=== PATIENT | male | born 1970 | race Caucasian/White ===

== ENCOUNTER 2016-03-25 16:27 | Inpatient (IN) | payer OTHER ==
[2016-03-25] MEDS ORDERED: SODIUM CHLORIDE 0.9% 1,000 ML IV STA ×2 (19:05→20:22)
[2016-03-25] MEDS ORDERED: METOCLOPRAMIDE 5 MG/ML 2 ML VIAL IVP STA (19:05)
--- NOTE | 2016-03-25 19:30 | ED ---
General Adult HPI - General Chief complaint: Nausea/Vomiting/Diarrhea Stated complaint: Vomiting,Dehydration,Trouble Urinating Time Seen by Provider: 03/25/16 19:04 Source: patient, family, RN notes reviewed, old records reviewed Mode of arrival: ambulatory Limitations: no limitations - History of Present Illness Initial comments: Chief complaint history of present illness a 45-year-old male with vomiting for the past 24 hours. Patient is unable to keep any fluids down. No diarrhea. Just generalized aches and pains. No fever. - Related Data Home Medications Medication Instructions Recorded Confirmed HYDROcodone/APAP 10-325MG [[place] 1 tab PO BID PRN 03/25/16 03/25/16 10-325] amLODIPine [Norvasc] 10 mg PO DAILY 03/25/16 03/25/16 traZODone HCL [Desyrel] 100 mg PO HS PRN 03/25/16 03/25/16 Allergies Allergy/AdvReac Type Severity Reaction Status Date / Time No Known Allergies Allergy Verified 03/25/16 19:31 Review of Systems ROS Statement: Those systems with pertinent positive or pertinent negative responses have been documented in the HPI. Review of systems. Patient has mild headache no blurred vision mild sore throat and vomiting reflux GERD type symptoms. No significant abdominal pain. No diarrhea. No skin rashes. No neuro deficits. All systems are reviewed. Past medical problems hypertension for which she takes Norvasc. Surgeries include meniscus repair arthroscopically though his knee. Family history father had prostate cancer. Patient denies ALLERGIES. He does smoke strongly encouraged stop strings alcohol. ROS Other: All systems not noted in ROS Statement are negative. Past Medical History Past Medical History: No Reported History History of Any Multi-Drug Resistant Organisms: None Reported Past Surgical History: Orthopedic Surgery Additional Past Surgical History / Comment(s): knee Past Psychological History: No Psychological Hx Reported Smoking Status: Current every day smoker Past Alcohol Use History: Occasional Past Drug Use History: Marijuana General Exam - General Exam Comments Initial Comments: General: The patient is awake and alert, has been vomiting for 24 hours. No blood noted in the vomit. No diarrhea. Vital signs show temperature 98.1 pulse 84 story rate and pulse ox 95% room air blood pressure 91/45 Eye: Pupils are equal, round and reactive to light, extra-ocular movements are intact ; there is normal conjunctiva bilaterally. No signs of icterus. Ears, nose, mouth and throat: There are moist mucous membranes , slightly dry. No oral lesions. Neck: The neck is supple, there is no tenderness , no anterior cervical lymphadenopathy. Cardiovascular: There is a regular rate and rhythm. No murmur, rub or gallop is appreciated. Respiratory: Lungs are clear to auscultation, respirations are non-labored, breath sounds are equal. No wheezes, stridor, rales, or rhonchi. Gastrointestinal: Soft, non-distended, non-tender abdomen without masses or organomegaly noted. There is no rebound or guarding present. No CVA tenderness. Active bowel sounds There is no tenderness to palpation in the midline. There is no obvious deformity. No rashes noted. Musculoskeletal: Normal ROM, no tenderness, There is no pedal edema. There is no calf tenderness or swelling. Sensation intact. Neurological: No evidence of any neuro deficits, no focal or lateralizing signs appreciated or complained of. Skin: Skin is warm and dry and no rashes or lesions are noted. Limitations: no limitations Course Vital Signs 03/25/16 17:51 Temperature 97.1 F L Pulse Rate 84 Respiratory 18 Rate Blood Pressure 91/45 O2 Sat by Pulse 95 Oximetry Medical Decision Making - Medical Decision Making Medical decision making; the patient's labs show acute renal failure with a BUN of 81 creatinine 7.52, WBC is 17.4 with a hemoglobin of 16.9 hematocrit of 49. The patient's sodium 144 potassium is 4.8 chloride 84. Carbon dioxide 30 with an anion gap of 30. The patient's glucose 139. AST ALT within normal limits total protein is 9.2 albumin is 5.4 amylase elevated 144 lipase elevated at 440. The patient is receiving IV fluids. The case discussed with Dr. lin the on- call production machine operator. He recommends 3 L normal saline and then run at 125/h. He wants a Davis catheter placed he also requests a renal ultrasound and a urinalysis in the morning. Case discussed with Dr. Whiting. Patient be admitted his service. - Lab Data Result diagrams: 03/25/16 19:25 03/25/16 19:25 Lab Results 03/25/16 03/25/16 Range/Units 19:25 19:25 WBC 17.4 H (3.8-10.6) k/uL RBC 5.25 (4.30-5.90) m/uL Hgb 16.9 (13.0-17.5) gm/dL Hct 49.2 (39.0-53.0) % MCV 93.7 (80.0-100.0) fL MCH 32.3 (25.0-35.0) pg MCHC 34.4 (31.0-37.0) g/dL RDW 12.4 (11.5-15.5) % Plt Count 343 (150-450) k/uL Neutrophils % 88 % Lymphocytes % 4 % Monocytes % 7 % Eosinophils % 1 % Basophils % 0 % Neutrophils # 15.2 H (1.3-7.7) k/uL Lymphocytes # 0.7 L (1.0-4.8) k/uL Monocytes # 1.2 H (0-1.0) k/uL Eosinophils # 0.1 (0-0.7) k/uL Basophils # 0.1 (0-0.2) k/uL Sodium 144 (137-145) mmol/L Potassium 4.8 (3.5-5.1) mmol/L Chloride 84 L (98-107) mmol/L Carbon Dioxide 30 (22-30) mmol/L Anion Gap 30 mmol/L BUN 81 H* (9-20) mg/dL Creatinine 7.52 H* (0.66-1.25) mg/dL Est GFR (MDRD) Af Amer 10 (>60 ml/min/1.73 sqM) Est GFR (MDRD) Non-Af 8 (>60 ml/min/1.73 sqM) Glucose 139 H (74-99) mg/dL Calcium 10.7 H (8.4-10.2) mg/dL Total Bilirubin 1.3 (0.2-1.3) mg/dL AST 25 (17-59) U/L ALT 43 (21-72) U/L Alkaline Phosphatase 66 (38-126) U/L Total Protein 9.2 H (6.3-8.2) g/dL Albumin 5.4 H (3.5-5.0) g/dL Amylase 144 H (30-110) U/L Lipase 440 H (23-300) U/L Disposition Clinical Impression: Acute renal failure, Anuria Disposition: ADMITTED IP TO THIS HOSP Condition: Serious
[2016-03-25 19:35] LABS: Basophils # (A) 0.1 k/uL (0-0.2); Basophils % (A) 0 %; CH 33.1; CHCM 35.5; Eosinophils # (A) 0.1 k/uL (0-0.7); Eosinophils % (A) 1 %; HCT 49.2 % (39.0-53.0); HDW 2.39; HGB 16.9 gm/dL (13.0-17.5); Luc # (Auto) 0.15; Luc % (Auto) 1; Lymphocytes # (A) 0.7 k/uL (1.0-4.8); Lymphocytes % (A) 4 %; MCH 32.3 pg (25.0-35.0); MCHC 34.4 g/dL (31.0-37.0); MCV 93.7 fL (80.0-100.0); Mean Platelet Volume 7.5; Monocytes # (A) 1.2 k/uL (0-1.0); Monocytes % (A) 7 %; Neutrophils # (A) 15.2 k/uL (1.3-7.7); Neutrophils % (A) 88 %; RBC 5.25 m/uL (4.30-5.90); RDW 12.4 % (11.5-15.5); WBC 17.4 k/uL (3.8-10.6); WBC (Perox) 18.05
--- NOTE | 2016-03-25 19:47 | XR ---
EXAMINATION TYPE: XR abdomen 2V DATE OF EXAM: 03/25/2016 7:45 PM COMPARISON: NONE HISTORY: Vomiting TECHNIQUE: 3 views FINDINGS: There is no sign of intestinal obstruction or pneumoperitoneum. Fecal pattern is normal. Th ere is no sign of a mass. There are no pathologic calcifications over the kidneys. IMPRESSION: Nonacute abdomen.
[2016-03-25 19:48] LABS: Calcium 10.7 mg/dL (8.4-10.2); Potassium 4.8 mmol/L (3.5-5.1); Total Bilirubin 1.3 mg/dL (0.2-1.3); Total Protein 9.2 g/dL (6.3-8.2)
[2016-03-25] MEDS ORDERED: HYDROmorphone 1 MG/ML 1 ML SYRINGE IVP STA (20:36)
[2016-03-25] MEDS ORDERED: NALOXONE 0.4 MG/ML 1 ML VIAL IV PRN (20:55)
[2016-03-25] MEDS ORDERED: SODIUM CHLORIDE 0.9% 1,000 ML IV ONE (21:07)
--- NOTE | 2016-03-25 21:54 | US ---
EXAMINATION TYPE: US renals and bladder DATE OF EXAM: 03/25/2016 9:22 PM COMPARISON: NONE CLINICAL HISTORY: Unable to urinate, pt had a catheter. EXAM MEASUREMENTS: Right Kidney: 10.5 x 5.1 x 5.5 cm Left Kidney: 11.1 x 4.1 x 4.7 cm TECHNOLOGIST IMPRESSION: Right Kidney: wnl Left Kidney: wnl Bladder: not seen due to catheter Bilateral Jets seen: Not seen There is no evidence for hydronephrosis at this point in time. No nephrolithiasis is seen. No corine s are identified. The urinary bladder is anechoic. Bilateral ureteral jets are seen. IMPRESSION: Normal bilateral renal sonogram. No evidence of renal mass or obstruction. Patient has a catheter. Th e urinary bladder was not evaluated. Normal Values: Renal Length = 9 - 12cm Bladder Wall: < 0.3cm
[2016-03-25] MEDS: SODIUM CHLORIDE 0.9% 1,000 ML IV SCH (23:06)
[2016-03-26] MEDS: ONDANSETRON 4 MG/2 ML VIAL IVP PRN ×4 (00:41→14:46)
[2016-03-26] MEDS: HYDROmorphone 1 MG/ML 1 ML SYRINGE IV PRN ×6 (00:42→21:06)
[2016-03-26 04:43] LABS: Basophils % (A) 0 %; CH 32.3; CHCM 34.5; Eosinophils # (A) 0.1 k/uL (0-0.7); Eosinophils % (A) 0 %; HCT 41.4 % (39.0-53.0); HDW 2.37; HGB 14.3 gm/dL (13.0-17.5); Luc # (Auto) 0.16; Luc % (Auto) 1; Lymphocytes # (A) 0.8 k/uL (1.0-4.8); Lymphocytes % (A) 5 %; MCH 32.6 pg (25.0-35.0); MCHC 34.7 g/dL (31.0-37.0); MCV 94.1 fL (80.0-100.0); Mean Platelet Volume 6.9; Monocytes # (A) 1.2 k/uL (0-1.0); Monocytes % (A) 7 %; Neutrophils # (A) 14.4 k/uL (1.3-7.7); Neutrophils % (A) 87 %; RDW 12.4 % (11.5-15.5); WBC 16.6 k/uL (3.8-10.6); WBC (Perox) 17.02
[2016-03-26 04:53] LABS: Calcium 9.4 mg/dL (8.4-10.2); Magnesium 2.1 mg/dL (1.6-2.3); Potassium 4.3 mmol/L (3.5-5.1); Total Bilirubin 0.8 mg/dL (0.2-1.3); Total Protein 6.6 g/dL (6.3-8.2)
[2016-03-26 05:04] LABS: Phosphorous 11.7 mg/dL (2.5-4.5)
[2016-03-26] MEDS: SODIUM CHLORIDE 0.9% 1,000 ML IV SCH ×3 (06:18→20:58)
[2016-03-26] MEDS: PANTOPRAZOLE 40 MG/10 ML VIAL IV SCH (07:47)
[2016-03-26] MEDS ORDERED: traZODone HCL 100 MG TAB PO PRN (08:40)
[2016-03-26] MEDS: HEPARIN SODIUM,PORCINE 5,000 UNIT/ML 1 ML VIAL SQ SCH ×2 (10:09→20:59)
--- NOTE | 2016-03-26 10:10 | P.HPIM ---
History of Present Illness H&P Date: 03/26/16 Chief Complaint: Vomiting and not making urine This is a 45-year-old male with a known history of smoking and hypertension. Patient presents to the emergency room due to intractable vomiting and not making any urine. Patient reports on Tuesday he had been tearing down drywall and inhaling the dust. The drywall is from 192. And then later in the day he started vomiting. He couldn't keep anything down. There has been over 24 hours without producing any urine. Patient has been having epigastric abdominal pain. Patient has been vomiting mostly bile in color. Now there is some blood noted in it. He reports having a normal bowel movement Tuesday morning. Has had no diarrhea. Denies any fevers chills or sweats. Laboratory results in the emergency room had shown a BUN of 81 and creatinine of 7.52. Renal ultrasound completed was normal. Patient received 3 L of IV fluids is currently has normal saline running at 125 mL an hour. His amylase and lipase were elevated on admission as well. Amylase has gone from 144-555. Lipase 440 increased to 3765. Patient reports no history of pancreatitis. He also reports no excessive alcohol use. He reports checking one beer on Tuesday. However he does not usually have any alcoholic beverages on a daily basis. No history of gallstones. Nephrology has been consulted. There is discussion about patient receiving dialysis. Abdominal x-ray was negative. Abdominal ultrasound has been ordered for further evaluation of his pancreatitis and ruling out gallstones. White count on admission elevated at 17.4. Patient is currently nothing by mouth. Still having episodes of vomiting. Patient denies any chest pain or shortness of breath. Patient also hypotensive on admission.* Blood pressure in the 80s. Blood pressure currently 111/71 Review of Systems Please refer to HPI otherwise unremarkable Past Medical History Past Medical History: Hypertension Additional Past Medical History / Comment(s): chronic back pain L1 - L5 History of Any Multi-Drug Resistant Organisms: None Reported Past Surgical History: Orthopedic Surgery Additional Past Surgical History / Comment(s): knee Past Anesthesia/Blood Transfusion Reactions: No Reported Reaction Past Psychological History: No Psychological Hx Reported Smoking Status: Current every day smoker Past Alcohol Use History: Occasional Past Drug Use History: Marijuana - Past Family History Mother Family Medical History: Cancer Additional Family Medical History / Comment(s): cancer - cervical Father Family Medical History: Renal Disease Additional Family Medical History / Comment(s): Dad had renal failure Medications and Allergies Home Medications Medication Instructions Recorded Confirmed Type HYDROcodone/APAP 10-325MG [[place] 1 tab PO BID PRN 03/25/16 03/25/16 History 10-325] amLODIPine [Norvasc] 10 mg PO DAILY 03/25/16 03/25/16 History traZODone HCL [Desyrel] 100 mg PO HS PRN 03/25/16 03/25/16 History Allergies Allergy/AdvReac Type Severity Reaction Status Date / Time No Known Allergies Allergy Verified 03/25/16 19:31 Physical Exam Vitals: Vital Signs Temp Pulse Pulse Resp BP BP Pulse Ox 03/26/16 04:15 84 18 111/71 88 L 03/26/16 04:00 97.1 F L 71 16 93/51 95 03/26/16 00:00 97.8 F 76 16 107/64 96 03/25/16 23:35 97.0 F L 78 18 82/45 96 03/25/16 23:00 71 18 84/46 95 03/25/16 22:40 96.8 F L 75 18 90/50 97 03/25/16 22:19 153/105 03/25/16 21:04 78 18 77/40 100 Intake and Output 03/25/16 03/26/16 03/26/16 22:59 06:59 14:59 Intake Total 750 Output Total 350 Balance 400 Intake: IV 250 Sodium Chloride 0.9% 1, 250 000 ml @ 125 mls/hr IV . Q8H [facility] Rx#:[id number] Oral 500 Output: Emesis 350 Other: Voiding Method Indwelling Catheter Weight 105.3 kg Head normocephalic Neck supple Lungs clear to auscultation bilaterally no wheezing or crackles Heart regular rate and rhythm S1-S2, no rub or gallop Abdomen is soft, nondistended. Diffuse tenderness. But more significantly in the epigastric and right upper quadrant. Positive bowel sounds Extremities no edema Neuro alert and orientated to 3 Results CBC & Chem 7: 03/26/16 04:22 03/26/16 04:22 Labs: Abnormal Lab Results - Last 24 Hours (Table) 03/26/16 03/26/16 Range/Units 04:22 04:22 WBC 16.6 H (3.8-10.6) k/uL Neutrophils # 14.4 H (1.3-7.7) k/uL Lymphocytes # 0.8 L (1.0-4.8) k/uL Monocytes # 1.2 H (0-1.0) k/uL Chloride 89 L (98-107) mmol/L BUN 80 H* (9-20) mg/dL Creatinine 7.50 H* (0.66-1.25) mg/dL Glucose 121 H (74-99) mg/dL Phosphorus 11.7 H* (2.5-4.5) mg/dL AST 16 L (17-59) U/L Amylase 555 H* (30-110) U/L Lipase 3765 H (23-300) U/L Thrombosis Risk Factor Assmnt - Choose All That Apply Any of the Below Risk Factors Present?: Yes Each Factor Represents 1 point: Obesity (BMI >25) Other Risk Factors: No Thrombosis Risk Factor Assessment Total Risk Factor Score: 1 Thrombosis Risk Factor Assessment Level: Low Risk Assessment and Plan Plan: 1. Acute kidney injury likely secondary to vomiting and hypotension. Nephrology has been consulted. BUN on admission 81 and creatinine 7.52. Patient's has received IV fluid boluses and currently has normal saline running at 125 mL an hour. Renal ultrasound was normal 2. Acute pancreatitis with epigastric abdominal pain. Check abdominal ultrasound to rule out gallstones. Patient denies daily alcohol use. Lipase 3765 and amylase 555. LFTs normal. Keep patient nothing by mouth. Continue with IV fluid hydration. Continue IV Dilaudid as needed for pain control. 3. Intractable vomiting continue Zofran as needed and IV Protonix 4. Hyperphosphatemia secondary to the acute kidney injury. Continue to monitor. Await nephrology recommendations. 5. Hypotension present on admission improved with IV fluids. Hold Norvasc 6. Hyperglycemia present on admission. Blood sugar 139 Patient has no history of diabetes. We'll continue to monitor blood sugars. Place patient on sliding scale with Accu-Checks every before meals and at bedtime 7. Nicotine dependence: Discussed smoking cessation for greater than 3 minutes and less than 10 minutes. Patient refuses smoking patch at this time 8. GI prophylaxis Protonix and DVT prophylaxis subcu heparin Time with Patient: Greater than 30 (Greater than 50% of the total time spent in counseling and coordination of care.I performed an examination of the patient and discussed their management with the physician [employer] Fabrication Supervisor. I have reviewed the Physician [employer] Supervisor's notes and agree with the documented findings and plan of care)
[2016-03-26 11:58] LABS: Glucose,Whole Blood 118 mg/dL (75-99)
[2016-03-26 12:05] LABS: Hemoglobin A1C 5.2 % (4.2-6.1)
[2016-03-26 12:08] LABS: INR 1.1 (<1.1); Prothrombin Time 10.8 sec (9.0-12.0)
--- NOTE | 2016-03-26 12:19 | US ---
EXAMINATION TYPE: US abdomen complete DATE OF EXAM: 03/26/2016 11:07 AM COMPARISON: Renal US in pacs CLINICAL HISTORY: 45-year-old male Abdomen pain and N/V x 4 days. Pancreatitis, rule out gallstones. TECHNIQUE: Multiple sonographic images of the abdomen were obtained. FINDINGS: Liver Length: 16.5cm Gallbladder Wall: 2.8 mm CBD: 0.5cm Spleen: 10.6cm Right Kidney: 10.5 x 5.6 x 6.2cm Left Kidney: 11.2 x 4.9 x 4.8cm Pancreas: Only a portion of the pancreatic neck and body are visualized and show no gross abnormality . Remainder suboptimally seen due to shadowing from bowel gas. Liver: wnl Gallbladder: There is no abnormal gall bladder wall thickening. However, the gallbladder is borderli ne to mildly hydropic measuring 4.2 cm wide. No shadowing calculi. Evidence for sonographic Polanco's sign: yes CBD: Visualized portions within normal limits. Spleen: Within normal limits. Right Kidney: No hydronephrosis. Left Kidney: No hydronephrosis. Upper IVC: visualized portions wnl Abd Aorta: visualized portions wnl IMPRESSION: 1. Findings equivocal for acute cholecystitis. There is positive sonographic Polanco sign with borderl ine to mild gallbladder hydrops. However, there is no abnormal wall thickening or shadowing calculus seen. Clinical correlation recommended. If further imaging evaluation is desired, HIDA scan can be pe rformed. 2. Bile duct normal caliber. Normal Values: Liver Length: < 16cm wnl, 17-18cm upper limits, >18cm enlarged Spleen Length = < 13cm Renal Length = 9 - 12cm GB Wall: < 0.3cm CBD: < 0.6cm or < 1.0cm post cholecystectomy
[2016-03-26] MEDS: INSULIN LISPRO (humaLOG) 300 UNIT/3 ML VIAL SQ SCH ×3 (12:57→20:58)
--- NOTE | 2016-03-26 14:45 | CONS ---
DATE OF CONSULTATION: 03/26/2016 REASON FOR CONSULTATION: Acute pancreatitis and epigastric pain. HISTORY OF PRESENT ILLNESS: The patient is a 45-year-old pleasant white male with past medical history of hypertension who was admitted to the hospital with acute onset of severe epigastric pain that started on Tuesday morning. He was working on [id number] and while at work he did not feel well and as the day went by he started experiencing some epigastric discomfort and had several episodes of nausea and vomiting. He threw up at least 12 times that day and went and saw his family physician yesterday and was advised to go to the emergency room. In the ER, he was noted to have acute renal failure with BUN of 81, creatinine of 7.52. Patient does not have any history of renal disease in the past. He was also noted to have acute elevation of amylase and lipase and hence we are consulted in regards to this issue. The patient states that he is feeling a little bit better today. He still has some epigastric discomfort and still has some nausea but no emesis. He has no prior history of peptic ulcer disease or recent NSAID use. He denies any prior history of pancreatitis. He usually drinks alcohol on a social basis 1 or 2 drinks a week. No new medications that we started recently. In the ER, he did have an ultrasound of the abdomen done that showed normal-appearing gallbladder with no stones. Part of the pancreas was visualized and appeared normal. Kidneys did not show any evidence of hydronephrosis. His past medical history is significant for hypertension and chronic back pain, anxiety, depression. PAST SURGICAL HISTORY: Knee surgery. MEDICATIONS AT HOME: [place], Norvasc, Desyrel. ALLERGIES: None. SOCIAL HISTORY: No smoking. Socially drinks alcohol. FAMILY HISTORY: Father had renal failure. Mother had cervical cancer. REVIEW OF SYSTEMS: CARDIOPULMONARY: No chest pain or shortness of breath. GENITOURINARY: No dysuria or hematuria. MUSCULOSKELETAL: Unremarkable. SKIN: Unremarkable. ENDOCRINE: Unremarkable. PSYCHIATRIC: Unremarkable. NEUROLOGY: Unremarkable. ENT/VISION: Unremarkable. CONSTITUTIONAL: Overall complains of fatigue and tiredness. On physical examination, he appears comfortable in no apparent distress. Vitals as are stable. Blood pressure is 107/64, pulse is 76, temperature 97.8. HEENT examination unremarkable. Conjunctivae pink. Sclerae anicteric. Oral cavity, no lesions. NECK: No JVD or lymph node enlargement. Chest was clear to auscultation. HEART: Regular rate and rhythm. Abdomen was soft. Bowel sounds are positive. No organomegaly. EXTREMITIES: No pedal edema. SKIN: No rashes. NEURO: Alert and oriented x3. No focal deficits. Labs done at the time of admission to hospital: BUN is 81, creatinine 7.52, today BUN is 80 and creatinine 7.50. Amylase was 555 and lipase is 3765. ALT, AST and T-bili and alkaline phosphatase are within normal limits. WBC is 16.6, hemoglobin 14.3, platelets are normal. IMPRESSION: 1. Acute pancreatitis, patient presents with epigastric pain associated with nausea, vomiting of 2 days' duration and noted to have acute elevation of amylase and lipase consistent with acute pancreatitis. He does not have a history of alcohol use other than social drinking. Ultrasound did not show any evidence of gallstones. Etiology of pancreatitis at this time remains unclear and will be further investigated. 2. Acute renal failure for which nephrology has been consulted. Apparently the patient is going for dialysis catheter placement today. RECOMMENDATIONS: 1. Will start him on a clear liquid diet. 2. Repeat amylase and lipase tomorrow. 3. Obtain fasting serum triglycerides. 4. IV Protonix. 5. Will follow the patient closely during his hospital stay. Thank you for this consultation.
--- NOTE | 2016-03-26 15:31 | CONS ---
DATE OF CONSULTATION: REASON FOR CONSULTATION: Renal failure. HISTORY OF PRESENT ILLNESS: Patient is a 45-year-old white male who was admitted to the hospital from the ER with complaints of nausea and vomiting which started about one day prior to admission. 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 He denied any chest pains or shortness of breath. He is having abdominal pain related to the vomiting. The amylase and lipase levels were noted to be significantly increased after admission. Patient was also found to have a creatinine of 7.52 mg/dL. He has no prior history of kidney diseases. He stated that he had not been making much urine for more than a day prior to admission. He denied any significant diarrhea and he had very poor oral intake over the last day or so. There is no history of use of NSAIDs prior to admission. Patient was maintained on IV fluids. The serum creatinine did not improved from yesterday and has been at about 7.5. PAST MEDICAL HISTORY: Significant for hypertension. PAST SURGICAL HISTORY: Knee surgery. SOCIAL HISTORY: Positive for smoking and marijuana use. No history of other drug abuse or alcohol abuse. Medications at home included: 1. Norvasc. 2. Desyrel. 3. [place]. ALLERGIES: None. REVIEW OF SYSTEMS: As per HPI. Other systems negative. On examination, the patient is comfortable, awake, alert, oriented x3, not in any acute distress. He is nauseated and throwing up dark colored emesis. HEENT: Atraumatic, normocephalic. Pupils are equal, round. JVP is not elevated. Lymph nodes are not palpable. Thyroid is not enlarged. Examination of the heart S1 and S2. Examination of the lungs: Bilateral breath sounds are heard. Decreased breath sounds in bases. ABDOMEN: Soft with tenderness noted in the midabdomen. Examination of lower extremities shows no evidence of edema. DIRECTOR PHARMACOLOGY exam shows patient is able to move all 4 extremities. Labs show sodium 138, potassium 4.3, BUN 80, serum creatinine 7.5. Hemoglobin at 14.3 g/dL, phosphorus is 11.7, calcium 10.7. Amylase was at 555 from 144, lipase went up to 765 from 440. Ultrasound of the kidneys showed no evidence of hydronephrosis or kidney stones and the abdomen ultrasound shows possible acute cholecystitis, bile duct caliber was normal ASSESSMENT: 1. Acute kidney injury, most likely acute tubular necrosis, currently oliguric with significantly compromised in renal function underlying uremia as well. 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 Therefore, his Perm-A-Cath placement is scheduled for review nurse tomorrow. In the meantime patient will be maintained on IV fluids. Currently he is not on any nephrotoxic medications. I have discussed with the patient and family that hopefully this is all acute and his renal function may improve but since there is no urine output, it may take a while if the renal function does recover. At this time, there is no evidence of obstructive uropathy. I will also order creatinine kinase level to rule out any underlying rhabdomyolysis. 2. Vomiting can also be from the pancreatitis as his enzymes have significantly increased from yesterday. 3. Mild hypercalcemia secondary to intravascular volume depletion, currently improved from yesterday. 4. Severe hyperphosphatemia associated with advanced renal failure. 5. Pancreatitis with the ultrasound of the abdomen showing suggestions acute cholecystitis. White count is mildly elevated. The patient is n.p.o. and maintained on IV fluids. Gastroenterology has been consulted. The patient has been evaluated by Dr. Contreras. 6. Rule out rhabdomyolysis, check CK levels PLAN: Continue IV fluids with aggressive IV hydration. Check CPK level and hemodialysis in a.m. once the Perm-A-Cath is inserted. Continue to avoid nephrotoxic agents. Thank you for this consultation. Will continue to follow the patient with you during his hospitalization.
[2016-03-26 17:34] LABS: Glucose,Whole Blood 105 mg/dL (75-99)
[2016-03-26] MEDS: HYDROcodone/APAP 10-325MG 1 EACH TAB PO PRN (18:51)
[2016-03-26 20:45] LABS: Glucose,Whole Blood 121 mg/dL (75-99)
[2016-03-27] MEDS: HYDROmorphone 1 MG/ML 1 ML SYRINGE IV PRN ×4 (04:04→20:15)
[2016-03-27] MEDS: SODIUM CHLORIDE 0.9% 1,000 ML IV SCH ×3 (05:09→20:09)
[2016-03-27 06:36] LABS: Glucose,Whole Blood 96 mg/dL (75-99)
[2016-03-27] MEDS: INSULIN LISPRO (humaLOG) 300 UNIT/3 ML VIAL SQ SCH ×4 (06:38→21:15)
[2016-03-27 07:01] LABS: Basophils % (A) 0 %; CH 32.2; CHCM 33.9; Eosinophils % (A) 0 %; HCT 36.8 % (39.0-53.0); HDW 2.44; HGB 12.2 gm/dL (13.0-17.5); Luc # (Auto) 0.21; Luc % (Auto) 2; Lymphocytes # (A) 0.4 k/uL (1.0-4.8); Lymphocytes % (A) 3 %; MCH 31.6 pg (25.0-35.0); MCV 95.6 fL (80.0-100.0); Mean Platelet Volume 7.4; Monocytes # (A) 0.9 k/uL (0-1.0); Monocytes % (A) 7 %; Neutrophils % (A) 88 %; RBC 3.85 m/uL (4.30-5.90); RDW 12.5 % (11.5-15.5); WBC 13.6 k/uL (3.8-10.6)
[2016-03-27 07:19] LABS: Calcium 7.7 mg/dL (8.4-10.2); Magnesium 1.8 mg/dL (1.6-2.3); Potassium 4.8 mmol/L (3.5-5.1); Total Bilirubin 0.8 mg/dL (0.2-1.3); Total Protein 5.6 g/dL (6.3-8.2)
[2016-03-27 07:27] LABS: Amorphous Sediment,Urine Rare /hpf; Appearance,Urine Turbid (Clear); Bacteria,Urine Moderate /hpf; Bilirubin,Urine Negative (Negative); Glucose,Urine (UA) 2+ (Negative); Ketones,Urine Negative (Negative); Leukocyte Esterase,Urine Large (Negative); Mucus,Urine Rare /hpf; Nitrite,Urine Negative (Negative); PH, Urine 5.5 (5.0-8.0); Particle Count 52934; Protein,Urine 2+ (Negative); RBC,Urine 168 /hpf (0-5); Specific Gravity,Urine 1.016 (1.001-1.035); Squamous Epithelial Cell,Urine 1 /hpf (0-4); UA Billing (MACRO vs. MICRO) MICRO; Urobilinogen,Urine <2.0 mg/dL (<2.0); WBC,Urine >182 /hpf (0-5)
[2016-03-27 07:34] LABS: Phosphorous 10.8 mg/dL (2.5-4.5)
[2016-03-27] MEDS: PANTOPRAZOLE 40 MG/10 ML VIAL IV SCH (07:36)
[2016-03-27] MEDS ORDERED: LIDOCAINE 2% INJ 20 MG/ML SQ ONE (08:17)
[2016-03-27] MEDS ORDERED: fentaNYL (PF) 50 MCG/ML 2 ML AMP IV ONE (08:19)
[2016-03-27] MEDS ORDERED: IV FLUID CONTINUATION 1,000 ML IV ONE (08:25)
[2016-03-27] MEDS ORDERED: MIDAZOLAM 2 MG/2 ML VIAL IV ONE (08:28)
[2016-03-27] MEDS: HYDROcodone/APAP 10-325MG 1 EACH TAB PO PRN (09:02)
[2016-03-27] MEDS: HEPARIN SODIUM,PORCINE 5,000 UNIT/ML 1 ML VIAL SQ SCH ×2 (09:05→20:14)
--- NOTE | 2016-03-27 09:25 | XR ---
EXAMINATION TYPE: XR chest 1V portable DATE OF EXAM: 03/27/2016 9:18 AM COMPARISON: NONE HISTORY: Catheter insertion TECHNIQUE: Single frontal view of the chest is obtained. FINDINGS: There is a right-sided dialysis catheter the tip overlying the right atrium and no pneumot horax. Subsegmental changes at both lung bases with cardiomegaly. Mild central venous congestion susp ected. IMPRESSION: 1. Catheter. The tip overlying the right atrium sizable pneumothorax. 2. Bilateral lower lobe subsegmental atelectasis or infiltrate correlate for mild venous congestion.
[2016-03-27 11:36] LABS: Glucose,Whole Blood 95 mg/dL (75-99)
--- NOTE | 2016-03-27 13:18 | P.PN ---
Subjective Principal diagnosis: Acute renal failure, acute pancreatitis Patient feeling better, no nausea or vomiting mild abdominal pain no fever or chills making some urine Dialysus catheter placed yesterday, Having hemodialysis at this time Objective - Vital Signs Vital signs: Vital Signs Temp 97.8 F 03/27/16 08:00 Pulse 97 03/27/16 04:00 Resp 18 03/27/16 08:00 BP 108/62 03/27/16 08:00 Pulse Ox 90 L 03/27/16 08:00 Intake & Output 03/26/16 03/27/16 03/27/16 18:59 06:59 18:59 Intake Total 1500 1000 50 Output Total 300 300 Balance 1200 700 50 Weight 105.3 kg 107.4 kg Intake: IV 1000 50 Sodium Chloride 0.9% 1, 1000 000 ml @ 125 mls/hr IV . Q8H [facility] Rx#:[id number] Intake, IV Titration 1000 Amount Sodium Chloride 0.9% 1, 1000 000 ml @ 125 mls/hr IV . Q8H [facility] ALEJANDR[facility] Rx#:[id number] Oral 500 0 Output: Urine 300 Emesis 300 Other: Voiding Method Indwelling Catheter Indwelling Catheter Indwelling Catheter - Exam In general patient is alert and oriented answering questions appropriately HEENT head normocephalic and atraumatic Neck is supple no JVD no goiter no lymphadenopathy Chest is clear to auscultation no crackles no wheezing Cardiac exam reveals regular heart sounds no gallops no murmurs Abdomen is soft nontender no organomegaly Extremity exam reveals no edema no cyanosis or clubbing - Labs CBC & Chem 7: 03/27/16 06:21 03/27/16 06:21 Labs: Abnormal Lab Results - Last 24 Hours (Table) 03/26/16 03/26/16 03/27/16 Range/Units 17:16 20:43 06:05 WBC (3.8-10.6) k/uL RBC (4.30-5.90) m/uL Hgb (13.0-17.5) gm/dL Hct (39.0-53.0) % Plt Count (150-450) k/uL Neutrophils # (1.3-7.7) k/uL Lymphocytes # (1.0-4.8) k/uL Sodium (137-145) mmol/L Chloride (98-107) mmol/L BUN (9-20) mg/dL Creatinine (0.66-1.25) mg/dL Glucose (74-99) mg/dL POC Glucose (mg/dL) 105 H 121 H (75-99) mg/dL Calcium (8.4-10.2) mg/dL Phosphorus (2.5-4.5) mg/dL AST (17-59) U/L Total Protein (6.3-8.2) g/dL Albumin (3.5-5.0) g/dL Amylase (30-110) U/L Lipase (23-300) U/L Urine Protein 2+ H (Negative) Urine Glucose (UA) 2+ H (Negative) Urine Blood Large H (Negative) Ur Leukocyte Esterase Large H (Negative) Urine RBC 168 H (0-5) /hpf Urine WBC >182 H (0-5) /hpf Amorphous Sediment Rare H (None) /hpf Urine Bacteria Moderate H (None) /hpf Urine Mucus Rare H (None) /hpf 03/27/16 03/27/16 Range/Units 06:21 06:21 WBC 13.6 H (3.8-10.6) k/uL RBC 3.85 L (4.30-5.90) m/uL Hgb 12.2 L (13.0-17.5) gm/dL Hct 36.8 L (39.0-53.0) % Plt Count 140 L (150-450) k/uL Neutrophils # 12.0 H (1.3-7.7) k/uL Lymphocytes # 0.4 L (1.0-4.8) k/uL Sodium 134 L (137-145) mmol/L Chloride 93 L (98-107) mmol/L BUN 96 H* (9-20) mg/dL Creatinine 9.10 H* (0.66-1.25) mg/dL Glucose 107 H (74-99) mg/dL POC Glucose (mg/dL) (75-99) mg/dL Calcium 7.7 L (8.4-10.2) mg/dL Phosphorus 10.8 H* (2.5-4.5) mg/dL AST 16 L (17-59) U/L Total Protein 5.6 L (6.3-8.2) g/dL Albumin 3.4 L (3.5-5.0) g/dL Amylase 722 H* (30-110) U/L Lipase 2558 H (23-300) U/L Urine Protein (Negative) Urine Glucose (UA) (Negative) Urine Blood (Negative) Ur Leukocyte Esterase (Negative) Urine RBC (0-5) /hpf Urine WBC (0-5) /hpf Amorphous Sediment (None) /hpf Urine Bacteria (None) /hpf Urine Mucus (None) /hpf Assessment and Plan Plan: #1 acute pancreatitis #2 dehydration was acute renal failure requiring hemodialysis most likely due to prerenal azotemia and acute tubular necrosis #3 intractable vomiting resolved #4 hypotension improved continue to hold blood pressure medications
[2016-03-27] MEDS ORDERED: HEPARIN SODIUM,PORCINE 5,000 UNIT/ML 1 ML VIAL ONE (14:20)
--- NOTE | 2016-03-27 16:23 | CONS ---
DATE OF CONSULTATION: This is a 45-year-old gentleman who has been admitted with history of intractable vomiting and the patient has history of smoking, hypertension. I was consulted for placement of dialysis catheter. Patient is not making urine. PAST MEDICAL HISTORY: History of hypertension, history of chronic back problem. SURGICAL HISTORY: Patient had orthopedic surgery done in the past. He has been taking hydrocodone 325 mg one tablet p.o. b.i.d. p.r.n. for the pain. On examination, neck is supple. Trachea central. Chest is clear to auscultation. First and second heart sounds are normal. Abdomen, the patient has abdominal pain. No peritoneal sign noted. Brachial, radial and femoral pulses are present. Lab finding are white cell count 16,000, creatinine 7.50, BUN 80, amylase 555 and lipase is 3765. IMPRESSION: 1. Acute kidney injury. 2. Acute pancreatitis. Plan is placement of dialysis catheter. Risks and complications discussed.
[2016-03-27 16:42] LABS: Glucose,Whole Blood 97 mg/dL (75-99)
--- NOTE | 2016-03-27 18:56 | PCN ---
PREOPERATIVE DIAGNOSIS: Acute on chronic renal failure. PROCEDURE: Ultrasound-guided 28 cm dialysis catheter placed via right internal jugular vein. This patient was brought to the slabber. Right side of the chest and neck was prepped and drapes applied in the usual sterile manner. 1% lidocaine was infiltrated into neck and chest area. After that, ultrasound-guided micropuncture into the right internal jugular vein. Micropuncture guidewire was passed. A 4 Maltese dilator advanced on top the guidewire. Then we passed a regular guidewire under fluoroscopy control and tip of the catheter was at inferior vena cava. An incision was made into the chest wall and 28 cm dialysis catheter brought to the chest wall and dilator was advanced on top the guidewire and sheath was withdrawn on top the guidewire. Through the sheath, we introduced the 28 cm dialysis catheter. Tip of the catheter was in superior vena cava and atrium. Flushed with heparin saline and hep-locked. Sterile dressing applied. The patient tolerated the procedure well.
[2016-03-27 20:53] LABS: Glucose,Whole Blood 104 mg/dL (75-99)
[2016-03-28] MEDS: HYDROmorphone 1 MG/ML 1 ML SYRINGE IV PRN ×5 (01:32→23:57)
[2016-03-28] MEDS: SODIUM CHLORIDE 0.9% 1,000 ML IV SCH ×3 (04:27→20:46)
[2016-03-28 06:07] LABS: Glucose,Whole Blood 100 mg/dL (75-99)
[2016-03-28] MEDS: INSULIN LISPRO (humaLOG) 300 UNIT/3 ML VIAL SQ SCH ×4 (06:30→21:29)
[2016-03-28 07:57] LABS: Calcium 7.5 mg/dL (8.4-10.2); Magnesium 1.8 mg/dL (1.6-2.3); Phosphorous 6.3 mg/dL (2.5-4.5); Potassium 4.3 mmol/L (3.5-5.1); Total Bilirubin 0.6 mg/dL (0.2-1.3); Total Protein 5.2 g/dL (6.3-8.2)
[2016-03-28] MEDS: HEPARIN SODIUM,PORCINE 5,000 UNIT/ML 1 ML VIAL SQ SCH ×2 (08:01→20:47)
[2016-03-28] MEDS: PANTOPRAZOLE 40 MG/10 ML VIAL IV SCH (08:01)
[2016-03-28 08:27] LABS: Basophils # (A) 0.1 k/uL (0-0.2); Basophils % (A) 0 %; CH 33.1; CHCM 33.6; Eosinophils # (A) 0.1 k/uL (0-0.7); Eosinophils % (A) 0 %; HCT 36.1 % (39.0-53.0); HDW 2.46; HGB 11.5 gm/dL (13.0-17.5); Luc # (Auto) 0.21; Luc % (Auto) 2; Lymphocytes # (A) 0.6 k/uL (1.0-4.8); Lymphocytes % (A) 4 %; MCH 31.4 pg (25.0-35.0); MCHC 31.8 g/dL (31.0-37.0); Mean Platelet Volume 8.7; Monocytes # (A) 1.2 k/uL (0-1.0); Monocytes % (A) 8 %; Neutrophils # (A) 11.7 k/uL (1.3-7.7); Neutrophils % (A) 85 %; RBC 3.65 m/uL (4.30-5.90); RDW 12.7 % (11.5-15.5); WBC 13.7 k/uL (3.8-10.6); WBC (Perox) 15.03
--- NOTE | 2016-03-28 11:28 | PN ---
DATE OF SERVICE: 03/27/2016 HISTORY OF PRESENT ILLNESS: Patient is seen for follow-up for acute kidney injury. He has just returned from Perm-A-Cath placement. He is currently comfortable. He is not in any acute distress. He is scheduled for hemodialysis today. On examination, blood pressure is 112/68, heart rate 90 per minute. He is afebrile. Examination of the heart S1 and S2. Examination of the lungs: Bilateral breath sounds are heard. Abdomen is soft, nontender. Examination of lower extremities shows no significant edema. 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 No asterixis are noted. Labs revealed serum creatinine 9.1 mg/dL, potassium is at 4.8 mEq/L. ASSESSMENT: 1. Acute kidney injury, most likely acute tubular necrosis, currently oliguric, status post Perm-A-Cath placement. Patient will have his first hemodialysis treatment today and we will dialyze him again tomorrow on Tuesday. He continues to have poor urine output. Hopefully, his urine output will improve over the next few days. 2. Pancreatitis with serum amylase and lipase currently decreasing. Patient has been evaluated by Gastroenterology. 3. Intervascular volume depletion. Continue with aggressive IV hydration. PLAN: Hemodialysis today and we will repeat hemodialysis again tomorrow on 03/28/16. Continue to avoid nephrotoxic agents and wait for urine output to increase and hopefully there will be some recovery of [place] kidney function.
[2016-03-28 12:08] LABS: Glucose,Whole Blood 93 mg/dL (75-99)
--- NOTE | 2016-03-28 12:23 | P.PN ---
Subjective Principal diagnosis: Acute renal failure, acute pancreatitis Patient feeling better, no nausea or vomiting mild abdominal pain no fever or chills making some urine Dialysis catheter placed Tuesday, Had hemodialysis yesterday Objective - Vital Signs Vital signs: Vital Signs Temp 97.3 F L 03/28/16 12:06 Pulse 85 03/28/16 12:06 Resp 18 03/28/16 12:06 BP 131/78 03/28/16 12:06 Pulse Ox 99 03/28/16 12:06 Intake & Output 03/27/16 03/28/16 03/28/16 18:59 06:59 18:59 Intake Total 1050 1000 120 Balance 1050 1000 120 Weight 113 kg Intake: IV 1050 1000 Sodium Chloride 0.9% 1, 1000 1000 000 ml @ 125 mls/hr IV . Q8H [facility] Rx#:[id number] Oral 120 Other: Voiding Method Indwelling Catheter Indwelling Catheter Indwelling Catheter # Voids 0 0 - Exam In general patient is alert and oriented answering questions appropriately HEENT head normocephalic and atraumatic Neck is supple no JVD no goiter no lymphadenopathy Chest is clear to auscultation no crackles no wheezing Cardiac exam reveals regular heart sounds no gallops no murmurs Abdomen is soft nontender no organomegaly Extremity exam reveals no edema no cyanosis or clubbing - Labs CBC & Chem 7: 03/28/16 06:56 03/28/16 06:56 Labs: Abnormal Lab Results - Last 24 Hours (Table) 03/27/16 03/28/16 03/28/16 Range/Units 20:32 05:53 06:56 WBC 13.7 H (3.8-10.6) k/uL RBC 3.65 L (4.30-5.90) m/uL Hgb 11.5 L (13.0-17.5) gm/dL Hct 36.1 L (39.0-53.0) % Plt Count 137 L (150-450) k/uL Neutrophils # 11.7 H (1.3-7.7) k/uL Lymphocytes # 0.6 L (1.0-4.8) k/uL Monocytes # 1.2 H (0-1.0) k/uL BUN (9-20) mg/dL Creatinine (0.66-1.25) mg/dL POC Glucose (mg/dL) 104 H 100 H (75-99) mg/dL Calcium (8.4-10.2) mg/dL Phosphorus (2.5-4.5) mg/dL AST (17-59) U/L Total Protein (6.3-8.2) g/dL Albumin (3.5-5.0) g/dL Lipase (23-300) U/L 03/28/16 Range/Units 06:56 WBC (3.8-10.6) k/uL RBC (4.30-5.90) m/uL Hgb (13.0-17.5) gm/dL Hct (39.0-53.0) % Plt Count (150-450) k/uL Neutrophils # (1.3-7.7) k/uL Lymphocytes # (1.0-4.8) k/uL Monocytes # (0-1.0) k/uL BUN 70 H (9-20) mg/dL Creatinine 6.60 H* (0.66-1.25) mg/dL POC Glucose (mg/dL) (75-99) mg/dL Calcium 7.5 L (8.4-10.2) mg/dL Phosphorus 6.3 H (2.5-4.5) mg/dL AST 13 L (17-59) U/L Total Protein 5.2 L (6.3-8.2) g/dL Albumin 2.9 L (3.5-5.0) g/dL Lipase 435 H (23-300) U/L Microbiology - Last 24 Hours (Table) 03/27/16 06:05 Urine Culture - Preliminary Urine,Catheterized Assessment and Plan Plan: #1 acute pancreatitis #2 dehydration was acute renal failure requiring hemodialysis most likely due to prerenal azotemia and acute tubular necrosis #3 intractable vomiting resolved #4 hypotension improved continue to hold blood pressure medications #5 possible UTI awaiting urine culture Will cover with Rocephin 1 g IV every 24 hours
[2016-03-28] MEDS: HYDROcodone/APAP 10-325MG 1 EACH TAB PO PRN (12:35)
--- NOTE | 2016-03-28 14:03 | PN ---
Patient is seen for follow-up for acute renal failure. This appears to be ( ) acute. Patient was initially oliguric. His urine output has picked up to about 300 mL last shift. He was dialyzed yesterday. He is currently feeling much better. No further episodes of vomiting. Patient is scheduled for dialysis again today. On examination blood pressure is 131/78, heart rate 85 per minute. He is afebrile. Examination of the heart S1 and S2. Examination of the lungs: Bilateral breath sounds are heard. ABDOMEN: Soft, nontender. Examination of lower extremities shows no significant edema. Labs reveal serum creatinine 6.6, sodium 138, potassium 4.3. Hemoglobin 11.5 g/dL, phosphorus is 6.3. ASSESSMENT: 1. Acute kidney injury, most likely acute tubular necrosis, initially oliguric currently nonoliguric with improving renal ( ) with improving urine output. Patient will be dialyzed again today and we will re-evaluate tomorrow for need for dialysis depending upon his labs and renal function. Depending on his labs and urine output. 2. Pancreatitis, currently significantly improved. 3. Hyperphosphatemia associated with acute kidney injury, maintained on phosphate binders, currently improving. Patient will be maintained on phosphate binders. He had not been eating therefore, PhosLo was not started. 4. Hypovolemia maintained on aggressive IV hydration. PLAN: Continue IV fluids. Hemodialysis today. Repeat phosphorus in the next 2 to 3 days and if renal function continues to improve, we may be able to stop the phosphate binders. I will start low-dose PhosLo for now.
[2016-03-28] MEDS: ONDANSETRON 4 MG/2 ML VIAL IVP PRN ×2 (17:08→23:57)
[2016-03-28] MEDS: CALCIUM ACETATE 667 MG CAP PO SCH (17:09)
[2016-03-28 17:20] LABS: Glucose,Whole Blood 98 mg/dL (75-99)
[2016-03-28 22:16] LABS: Glucose,Whole Blood 103 mg/dL (75-99)
[2016-03-29] MEDS: ONDANSETRON 4 MG/2 ML VIAL IVP PRN ×3 (03:58→20:34)
[2016-03-29] MEDS: HYDROmorphone 1 MG/ML 1 ML SYRINGE IV PRN ×7 (03:58→23:54)
[2016-03-29] MEDS: SODIUM CHLORIDE 0.9% 1,000 ML IV SCH ×3 (03:59→20:35)
[2016-03-29 07:39] LABS: Glucose,Whole Blood 87 mg/dL (75-99)
[2016-03-29] MEDS: INSULIN LISPRO (humaLOG) 300 UNIT/3 ML VIAL SQ SCH (07:49)
[2016-03-29] MEDS: HEPARIN SODIUM,PORCINE 5,000 UNIT/ML 1 ML VIAL SQ SCH ×2 (07:50→20:35)
[2016-03-29] MEDS: PANTOPRAZOLE 40 MG/10 ML VIAL IV SCH (07:50)
[2016-03-29] MEDS: CALCIUM ACETATE 667 MG CAP PO SCH ×2 (07:50→17:24)
[2016-03-29 08:36] LABS: Basophils % (A) 0 %; CH 32.1; CHCM 33.3; Eosinophils # (A) 0.1 k/uL (0-0.7); Eosinophils % (A) 1 %; HCT 34.9 % (39.0-53.0); HDW 2.46; HGB 11.5 gm/dL (13.0-17.5); Luc % (Auto) 3; Lymphocytes # (A) 0.6 k/uL (1.0-4.8); Lymphocytes % (A) 4 %; MCH 31.9 pg (25.0-35.0); MCHC 32.9 g/dL (31.0-37.0); MCV 96.8 fL (80.0-100.0); Mean Platelet Volume 7.8; Monocytes # (A) 1.2 k/uL (0-1.0); Monocytes % (A) 8 %; Neutrophils % (A) 85 %; RBC 3.61 m/uL (4.30-5.90); RDW 12.5 % (11.5-15.5); WBC 15.3 k/uL (3.8-10.6); WBC (Perox) 15.74
[2016-03-29 08:53] LABS: Calcium 7.9 mg/dL (8.4-10.2); Magnesium 1.8 mg/dL (1.6-2.3); Phosphorous 4.5 mg/dL (2.5-4.5); Potassium 3.8 mmol/L (3.5-5.1); Total Bilirubin 0.5 mg/dL (0.2-1.3); Total Protein 5.5 g/dL (6.3-8.2)
--- NOTE | 2016-03-29 08:53 | IR ---
EXAMINATION TYPE: IR cvc insert central tunneled DATE OF EXAM: 03/27/2016 8:42 AM COMPARISON: NONE HISTORY: Renal failure Fluoroscopy support supplied to the referring clinician. See dictated report from vascular surgery, 0.5 minutes fluoroscopy time, 111 intraoperative C-arm images document the procedure
[2016-03-29 10:37] LABS: Amylase 98 U/L (30-110)
--- NOTE | 2016-03-29 11:56 | P.PN ---
Subjective Acute renal failure and acute pancreatitis Patient has been having vomiting since yesterday. Vomiting happens just prior to when his pain medications are due. He did receive hemodialysis yesterday. Still complaining of abdominal pain. Case discussed with GI service. Patient will require further workup for his pancreatitis in the outpatient setting. Patient denies any chest pain, shortness of breath. He did have a bowel movement yesterday that was formed. He is making urine. Objective - Vital Signs Vital signs: Vital Signs Temp 99.8 F H 03/29/16 07:00 Pulse 88 03/29/16 07:00 Resp 16 03/29/16 07:00 BP 136/76 03/29/16 07:00 Pulse Ox 91 L 03/29/16 07:00 Intake & Output 03/28/16 03/29/16 03/29/16 18:59 06:59 18:59 Intake Total 120 Output Total 10 980 Balance 110 -980 Weight 104 kg Intake: Oral 120 Output: Urine 900 Emesis 10 80 Other: Voiding Method Indwelling Catheter Indwelling Catheter Indwelling Catheter # Voids 0 1 - Exam Head normocephalic Neck supple Lungs clear to auscultation bilaterally no wheezing or crackles Heart regular rate and rhythm S1-S2, no rub or gallop Abdomen is soft nondistended epigastric tenderness Extremities no edema Neuro alert and orientated to 3 - Labs CBC & Chem 7: 03/29/16 08:15 03/29/16 08:15 Labs: Abnormal Lab Results - Last 24 Hours (Table) 03/28/16 03/29/16 03/29/16 Range/Units 21:24 08:15 08:15 WBC 15.3 H (3.8-10.6) k/uL RBC 3.61 L (4.30-5.90) m/uL Hgb 11.5 L (13.0-17.5) gm/dL Hct 34.9 L (39.0-53.0) % Neutrophils # 13.0 H (1.3-7.7) k/uL Lymphocytes # 0.6 L (1.0-4.8) k/uL Monocytes # 1.2 H (0-1.0) k/uL BUN 56 H (9-20) mg/dL Creatinine 4.80 H (0.66-1.25) mg/dL POC Glucose (mg/dL) 103 H (75-99) mg/dL Calcium 7.9 L (8.4-10.2) mg/dL AST 16 L (17-59) U/L Total Protein 5.5 L (6.3-8.2) g/dL Albumin 3.1 L (3.5-5.0) g/dL Microbiology - Last 24 Hours (Table) 03/27/16 06:05 Urine Culture - Final Urine,Catheterized Assessment and Plan Plan: 1. Acute kidney injury likely acute tubular necrosis secondary to patient's dehydration from his vomiting and hypotension. Patient has been started on hemodialysis during this admission. He did have hemodialysis yesterday. Creatinine today is 4.8. Renal ultrasound normal. Nephrology following closely 2. Acute pancreatitis with epigastric abdominal pain. Exact etiology unclear. Case discussed with Dr. Contreras. She is recommending further workup outpatient when patient's kidney function has shown improvement. Amylase and lipase have normalized. 3. Vomiting continue with the Zofran. Possibly related to uremia. Case discussed with GI service they felt most likely was related to patient's uremia 4. Hyperphosphatemia secondary to the acute kidney injury. Nephrology following. They have started PhosLo 5. Hypotension present on admission improved with IV fluids. Hold Norvasc 6. Hyperglycemia present on admission. Blood sugar 139 Patient has no history of diabetes. Likely reactive from patient's acute condition. Hemoglobin A1c 5.2. Diabetes has been ruled out. Has not required insulin. Discontinue Accu- Cheks 7. Nicotine dependence: Discussed smoking cessation for greater than 3 minutes and less than 10 minutes. Patient refuses smoking patch at this time 8. GI prophylaxis Protonix and DVT prophylaxis subcu heparin 9. Possible UTI: Currently on IV Rocephin. Urine culture showing no growth
--- NOTE | 2016-03-29 19:24 | PN ---
DATE OF SERVICE: 03/29/2016 Patient is a 45-year-old pleasant white male admitted to the hospital with acute pancreatitis and acute renal failure. He underwent a dialysis catheter placement 2 days ago and he was started on dialysis yesterday. He still complains of epigastric discomfort though it is improving. He still has some nausea and vomiting. He had 2 episodes of emesis after clear liquid diet this morning. He denies any fever, chills, night sweats. No rectal bleeding or melena. On physical examination, he appears comfortable in no apparent distress. Vitals as are stable. Blood pressure is 131/78, pulse 85, temperature 97.3. HEENT: Unremarkable. Conjunctivae pink. Sclerae anicteric. Oral cavity, no lesions. NECK: No JVD or lymph node enlargement. Chest was clear to auscultation. HEART: Regular rate and rhythm. ABDOMEN: Soft. It was slightly distended. There was still mild tenderness in the epigastric area. Bowel sounds are positive. EXTREMITIES: 2+ pedal edema. SKIN: No rashes. NEURO: Alert and oriented x3. No focal deficits. LABS: BUN is down to 56, creatinine 4.8. WBC 15.3, hemoglobin 11.5, platelets are normal. Lipase from yesterday was 435 but today is still pending. IMPRESSION: 1. Acute pancreatitis, which is gradually improving. Patient however, still continues to have persistent nausea, vomiting. Ultrasound at the time of admission to the hospital did not show any evidence of gallstones. No CAT scan was done because of acute renal failure. Etiology of pancreatitis still remains unclear. 2. Acute renal failure, patient started on hemodialysis and is gradually improving. RECOMMENDATIONS: 1. Repeat amylase and lipase from today. 2. If they are improving he still be continued on clear liquid diet. 3. Continue with antiemetics and IV Protonix and will follow the patient closely.
--- NOTE | 2016-03-29 20:07 | PN ---
Patient is seen for follow-up for acute kidney injury. He has had 2 dialysis treatments and he is currently doing better. He was admitted with a serum creatinine of 7.5 mg/dL, severe anemia and pancreatitis. He initially had no urine output. Currently urine output has improved significantly. Patient has an indwelling Davis catheter and for 24 hours he had about 990 mL. On examination today, blood pressure is 132/77, heart rate 75 per minute. He is afebrile. Examination of the heart S1 and S2. Examination of lungs: Bilateral breath sounds are heard. ABDOMEN: Soft with mild tenderness noted. Examination of lower extremities shows no evidence of edema. 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 Patient is moving all 4 extremities. Labs show hemoglobin 11.5, serum creatinine 4.8 mg/dL, sodium 141, potassium 3.8. Lipase is down to 197 from 3765. ASSESSMENT: 1. Acute kidney injury, most likely acute tubular necrosis, currently nonoliguric with improved urine output. Will hold off on hemodialysis today to assess ( ) recovery of the patient's ( ) renal function. 2. Pancreatitis, currently improving being followed by gastroenterology. 3. Hyperglycemia noted on initial admission, most likely stress related. PLAN: Hold hemodialysis today and repeat labs in a.m. Monitor renal function. If his creatinine is about the same or improved, I will hold off on dialysis.
[2016-03-29] MEDS: ZOLPIDEM 10 MG TAB PO PRN (20:37)
[2016-03-29 21:06] LABS: Glucose,Whole Blood 92 mg/dL (75-99)
[2016-03-30] MEDS: ONDANSETRON 4 MG/2 ML VIAL IVP PRN ×3 (03:03→20:21)
[2016-03-30] MEDS: HYDROmorphone 1 MG/ML 1 ML SYRINGE IV PRN ×6 (03:03→22:11)
[2016-03-30] MEDS: SODIUM CHLORIDE 0.9% 1,000 ML IV SCH ×3 (05:17→20:38)
[2016-03-30 07:25] LABS: Glucose,Whole Blood 102 mg/dL (75-99)
[2016-03-30] MEDS: PANTOPRAZOLE 40 MG TABLET PO SCH (07:44)
[2016-03-30] MEDS: CALCIUM ACETATE 667 MG CAP PO SCH ×2 (07:44→18:36)
[2016-03-30] MEDS: HYDROcodone/APAP 10-325MG 1 EACH TAB PO PRN ×2 (08:34→20:30)
[2016-03-30] MEDS: HEPARIN SODIUM,PORCINE 5,000 UNIT/ML 1 ML VIAL SQ SCH ×2 (09:10→20:23)
[2016-03-30 09:41] LABS: Basophils % (A) 0 %; CH 31.8; CHCM 33.1; Eosinophils # (A) 0.1 k/uL (0-0.7); Eosinophils % (A) 1 %; HCT 34.5 % (39.0-53.0); HDW 2.44; HGB 11.3 gm/dL (13.0-17.5); Luc # (Auto) 0.38; Luc % (Auto) 3; Lymphocytes # (A) 0.8 k/uL (1.0-4.8); Lymphocytes % (A) 5 %; MCH 31.6 pg (25.0-35.0); MCHC 32.7 g/dL (31.0-37.0); MCV 96.5 fL (80.0-100.0); Mean Platelet Volume 7.9; Monocytes # (A) 1.2 k/uL (0-1.0); Monocytes % (A) 8 %; Neutrophils % (A) 84 %; RBC 3.57 m/uL (4.30-5.90); RDW 12.4 % (11.5-15.5); WBC 15.5 k/uL (3.8-10.6); WBC (Perox) 16.99
[2016-03-30 09:47] LABS: Calcium 8.2 mg/dL (8.4-10.2); Total Bilirubin 0.5 mg/dL (0.2-1.3); Total Protein 5.6 g/dL (6.3-8.2)
--- NOTE | 2016-03-30 10:38 | CDI ---
In responding to this query, please exercise your independent professional judgment. The [facility] Coding Staff and Clinical Documentation Specialists appreciate your assistance in clarifying documentation, maintaining compliance with coding guidelines, accurately documenting patients condition and capturing severity of illness. The fact that a question is asked does not imply that any particular answer is desired or expected. Communication forms are a method of clarifying documentation and are not made part of the Legal Health Record. Thank you in advance for your clarification. Last Revision, May 2015 [place] Xavier [address] [place] [address] Documentation Clarification Form Date: 03/30/2016 10:36:00 AM From: Daphne Gilliamluz Admit Date: 03/25/2016 8:55:00 PM Patient Name: Pb Rowley Visit Number: [id number] Dr. Debora Whiting, Dr Tovar, or LYNNE Cook Patient history/risk factors: Acute Kidney Injury Acute Pancreatitis Vomiting Clinical Indicators: Blood Pressure: 91/45 on presentation, dropped to 77/40 Labs: bun 81, Cr 7.52, GFR 8 Treatment: IV fluids with boluses x3 In your professional opinion, can you please indicate if this signifies one of the diagnoses listed below? Hypovolemic Shock o Cause (please specify) Other, please specify Unable to determine Please document in your progress notes and discharge summary in order to capture severity of illness and risk of mortality. Include clinical findings that support your diagnosis. FYI: Press F11 to launch patient chart. Place X here if this finding has no clinical significance, is not applicable or if you are not able to provide any additional documentation. GIGID
[2016-03-30 11:43] LABS: Glucose,Whole Blood 87 mg/dL (75-99)
--- NOTE | 2016-03-30 13:42 | P.PN ---
Subjective Principal diagnosis: Acute pancreatitis, renal failure 45-year-old male admitted with acute pancreatitis of unclear etiology as well as underlying acute renal failure status post dialysis. Intermittent nausea and upper abdominal discomfort with bloatedness. Afebrile. Pancreatic enzymes normalized. Creatinine improving. Repeat ultrasound abdomen completed and results are pending. White count 15.5. Hemoglobin 11.3. Objective - Vital Signs Vital signs: Vital Signs Temp 98.8 F 03/30/16 07:00 Pulse 80 03/30/16 08:00 Resp 21 03/30/16 08:00 BP 160/84 03/30/16 07:00 Pulse Ox 98 03/30/16 07:00 Intake & Output 03/29/16 03/30/16 03/30/16 18:59 06:59 18:59 Intake Total 120 Output Total 1200 1530 75 Balance -1200 -1530 45 Weight 108 kg Intake: Oral 120 Output: Urine 1200 Uretheral (Davis) 600 Emesis 1530 75 Other: Voiding Method Indwelling Catheter Toilet Toilet Urinal Urinal # Voids 2 - Exam General appearance: The patient is alert, oriented, in no acute distress. HET: Head is normocephalic and atraumatic. Pupils are equal and reactive. Oropharynx is clear without lesions. Neck: Supple without lymphadenopathy. Trachea midline. Heart: S1 S2. Regular rate and rhythm. Lungs: No crackles or wheezes are heard. Abdomen: Soft, mildly bloated, mild tenderness midepigastrium left upper quadrant with bowel sounds. No peritoneal signs. No palpable organomegaly or masses. Extremities: Normal skin color and turgor. +1 Bilateral pedal edema.. Radial and pedal pulses are 2/4 bilaterally. Neurological: No focal deficits. Strength and sensation are grossly intact. - Labs CBC & Chem 7: 03/30/16 08:28 03/30/16 08:28 Labs: Abnormal Lab Results - Last 24 Hours (Table) 03/30/16 03/30/16 03/30/16 Range/Units 07:12 08:28 08:28 WBC 15.5 H (3.8-10.6) k/uL RBC 3.57 L (4.30-5.90) m/uL Hgb 11.3 L (13.0-17.5) gm/dL Hct 34.5 L (39.0-53.0) % Neutrophils # 13.0 H (1.3-7.7) k/uL Lymphocytes # 0.8 L (1.0-4.8) k/uL Monocytes # 1.2 H (0-1.0) k/uL BUN 58 H (9-20) mg/dL Creatinine 4.19 H (0.66-1.25) mg/dL POC Glucose (mg/dL) 102 H (75-99) mg/dL Calcium 8.2 L (8.4-10.2) mg/dL Total Protein 5.6 L (6.3-8.2) g/dL Albumin 3.0 L (3.5-5.0) g/dL Assessment and Plan Plan: 1. Acute pancreatitis etiology unclear gradually improving. No evidence of ultrasound and radiographic imaging. Repeat ultrasound of the abdomen completed and results pending. 2. Acute renal failure status post hemodialysis with improvement of creatinine. Plan: 1. Supportive measures. Await ultrasound findings. Continue liquid diet with ensure clear. Will add Reglan for nausea. Will continue to follow.
[2016-03-30] MEDS ORDERED: METOCLOPRAMIDE 5 MG/ML 2 ML VIAL IVP PRN (14:08)
--- NOTE | 2016-03-30 14:21 | P.PN ---
Subjective Patient continues to have abdominal pain today. He is nauseated but no vomiting. He is on liquid diet. Objective - Vital Signs Vital signs: Vital Signs Temp 98.8 F 03/30/16 07:00 Pulse 80 03/30/16 08:00 Resp 21 03/30/16 08:00 BP 160/84 03/30/16 07:00 Pulse Ox 98 03/30/16 07:00 Intake & Output 03/29/16 03/30/16 03/30/16 18:59 06:59 18:59 Intake Total 120 Output Total 1200 1530 75 Balance -1200 -1530 45 Weight 108 kg Intake: Oral 120 Output: Urine 1200 Uretheral (Davis) 600 Emesis 1530 75 Other: Voiding Method Indwelling Catheter Toilet Toilet Urinal Urinal # Voids 2 - Exam General: The patient is awake and alert, in no distress Eye: there is normal conjunctiva bilaterally. Neck: The neck is supple, there is no JVD. Cardiovascular: Normal S1-S2, no S3-S4, no murmurs. Respiratory: Lungs clear to auscultation bilaterally Gastrointestinal: Abdomen is soft, nontender Musculoskeletal: There is no pedal edema. Neurological:. Speech is normal. Skin: Skin is warm and dry - Labs CBC & Chem 7: 03/30/16 08:28 03/30/16 08:28 Labs: Abnormal Lab Results - Last 24 Hours (Table) 03/30/16 03/30/16 03/30/16 Range/Units 07:12 08:28 08:28 WBC 15.5 H (3.8-10.6) k/uL RBC 3.57 L (4.30-5.90) m/uL Hgb 11.3 L (13.0-17.5) gm/dL Hct 34.5 L (39.0-53.0) % Neutrophils # 13.0 H (1.3-7.7) k/uL Lymphocytes # 0.8 L (1.0-4.8) k/uL Monocytes # 1.2 H (0-1.0) k/uL BUN 58 H (9-20) mg/dL Creatinine 4.19 H (0.66-1.25) mg/dL POC Glucose (mg/dL) 102 H (75-99) mg/dL Calcium 8.2 L (8.4-10.2) mg/dL Total Protein 5.6 L (6.3-8.2) g/dL Albumin 3.0 L (3.5-5.0) g/dL Assessment and Plan Plan: 1. Acute kidney injury likely acute tubular necrosis. Patient has been started on hemodialysis during this admission. Renal ultrasound normal. Nephrology following closely 2. Acute pancreatitis with epigastric abdominal pain. Exact etiology unclear. Case discussed with Dr. Contreras. She is recommending further workup outpatient when patient's kidney function has shown improvement. Amylase and lipase have normalized. 3. Vomiting continue with the Zofran. Possibly related to uremia. Case discussed with GI service they felt most likely was related to patient's uremia 4. Hyperphosphatemia secondary to the acute kidney injury. Nephrology following. They have started PhosLo 5. Hypotension present on admission: Secondary to hypovolemic shock improved with IV fluids. Hold Norvasc 6. Nicotine dependence: Discussed smoking cessation during this admission. Patient refuses smoking patch at this time 7. GI prophylaxis Protonix and DVT prophylaxis subcu heparin 9. UTI: Currently on IV Rocephin. Urine culture showing no growth. Will finish 5 days course of antibiotic.
[2016-03-30 15:26] VITALS: BMI 29.7
[2016-03-30 17:05] LABS: Glucose,Whole Blood 115 mg/dL (75-99)
--- NOTE | 2016-03-30 18:49 | US ---
EXAMINATION TYPE: US abdomen complete DATE OF EXAM: 03/30/2016 8:18 AM COMPARISON: 03/26/2016 CLINICAL HISTORY: Nausea/Vomiting, bloating. EXAM MEASUREMENTS: Liver Length: 16.5 cm Gallbladder Wall: 0.2 cm CBD: 0.4 cm Spleen: 12.6 cm Right Kidney: 13.0 x 7.3 x 6.1 cm Left Kidney: 15.0 x 6.4 x 6.2 cm ANATOMY: TECHNOLOGIST IMPRESSION: Pancreas: Tail Obscured by bowel gas Liver: Within normal limits Gallbladder: large in size, ? small amount of free fluid adjacent to GB Evidence for sonographic Polanco's sign: Yes CBD: Within normal limits Spleen: Within normal limits Right Kidney: Within normal limits Left Kidney: Within normal limits Upper IVC: Within normal limits Abd Aorta: Within normal limits There may be some mild heterogeneity to the liver. Minimal fatty infiltration may be present. IMPRESSION: 1. Mild fatty infiltration of the liver. 2. Minimal fluid adjacent to the gallbladder is reported by the technologist not well visualized curr ently. Normal Values: Liver Length: < 16cm wnl, 17-18cm upper limits, >18cm enlarged Spleen Length = < 13cm Renal Length = 9 - 12cm GB Wall: < 0.3cm CBD: < 0.6cm or < 1.0cm post cholecystectomy
--- NOTE | 2016-03-30 20:01 | PN ---
Patient is seen for follow-up for acute kidney injury. His urine output has improved and serum creatinine is also down to 4.19 from 4.8 yesterday without dialysis. Patient states that he continues to have some abdominal pain and he still feels nauseated. His lipase level has improved significantly from 2558 to 197 now. On examination, blood pressure is 148/85, heart rate 80 per minute. The patient is afebrile. Examination of the heart S1 and S2. Examination of the lungs: Decreased breath sounds in bases. ABDOMEN: Soft and some tenderness is noted. Examination of lower extremities shows no evidence of edema. Labs show serum creatinine 4.19, sodium 144, potassium 4.0. ASSESSMENT: 1. Acute kidney injury, acute tubular necrosis, currently with good urine output improvement in serum creatinine since yesterday without dialysis. I will hold off on dialysis for now and repeat labs in a.m. 2. Acute pancreatitis with improving amylase and lipase levels. 3. Hyperphosphatemia, maintained on PhosLo. 4. Pyuria with urine culture showing no evidence of growth, maintained on Rocephin. PLAN: Decrease IV fluids. Repeat labs in a.m. Hold off on dialysis unless creatinine is higher tomorrow.
[2016-03-30 21:35] LABS: Glucose,Whole Blood 99 mg/dL (75-99)
[2016-03-30] MEDS: ZOLPIDEM 10 MG TAB PO PRN (22:15)
[2016-03-31] MEDS: HYDROmorphone 1 MG/ML 1 ML SYRINGE IV PRN ×7 (01:15→23:04)
[2016-03-31] MEDS: SODIUM CHLORIDE 0.9% 1,000 ML IV SCH ×3 (04:07→20:23)
[2016-03-31 07:11] LABS: Glucose,Whole Blood 101 mg/dL (75-99)
[2016-03-31] MEDS: HYDROcodone/APAP 10-325MG 1 EACH TAB PO PRN ×2 (07:58→20:20)
[2016-03-31] MEDS: HEPARIN SODIUM,PORCINE 5,000 UNIT/ML 1 ML VIAL SQ SCH ×2 (09:17→20:23)
[2016-03-31] MEDS: CALCIUM ACETATE 667 MG CAP PO SCH ×2 (09:17→17:54)
[2016-03-31] MEDS: PANTOPRAZOLE 40 MG TABLET PO SCH (09:17)
--- NOTE | 2016-03-31 10:24 | P.PN ---
Subjective Principal diagnosis: Acute pancreatitis, renal failure 45-year-old male admitted with acute pancreatitis of unclear etiology as well as underlying acute renal failure status post dialysis. Nausea improved. No emesis. Still reports upper abdominal discomfort with bloatedness. Afebrile. Repeat ultrasound abdomen completed no stones or biliary duct dilation. Objective - Vital Signs Vital signs: Vital Signs Temp 99.1 F 03/31/16 07:00 Pulse 71 03/31/16 07:00 Resp 20 03/31/16 07:00 BP 168/90 03/31/16 07:00 Pulse Ox 91 L 03/31/16 07:00 Intake & Output 03/30/16 03/31/16 03/31/16 18:59 06:59 18:59 Intake Total 1240 Output Total 75 Balance 1165 Weight 108 kg 111.5 kg Intake: IV 1000 Sodium Chloride 0.9% 1, 1000 000 ml @ 125 mls/hr IV . Q8H MARIA ALEJANDRA Rx#:[id number] Oral 240 Output: Emesis 75 Other: Voiding Method Toilet Toilet Urinal # Voids 2 2 # Emeses 2 - Exam General appearance: The patient is alert, oriented, in no acute distress. HET: Head is normocephalic and atraumatic. Pupils are equal and reactive. Oropharynx is clear without lesions. Neck: Supple without lymphadenopathy. Trachea midline. Heart: S1 S2. Regular rate and rhythm. Lungs: No crackles or wheezes are heard. Abdomen: Soft, mildly bloated, mild tenderness midepigastrium left upper quadrant with bowel sounds. No peritoneal signs. No palpable organomegaly or masses. Extremities: Normal skin color and turgor. +1 Bilateral pedal edema.. Radial and pedal pulses are 2/4 bilaterally. Neurological: No focal deficits. Strength and sensation are grossly intact. - Labs CBC & Chem 7: 03/30/16 08:28 03/30/16 08:28 Labs: Abnormal Lab Results - Last 24 Hours (Table) 03/30/16 03/31/16 Range/Units 17:02 07:09 POC Glucose (mg/dL) 115 H 101 H (75-99) mg/dL Assessment and Plan Plan: 1. Acute pancreatitis etiology unclear gradually improving. No evidence of cholelithiasis or ductal dilation. 2. Acute renal failure status post hemodialysis with improvement of creatinine. 3. Pyuria. Plan: 1. Supportive measures. Advance diet. RTO 2-3 weeks. Will follow as needed.
[2016-03-31 10:41] LABS: Potassium 3.8 mmol/L (3.5-5.1)
--- NOTE | 2016-03-31 11:01 | P.PN ---
Subjective Patient is complaining of persistent abdominal pain and bloating. He is very nauseated. He did not vomit. He said that he feels like he ate a large turkey meal. Minutes ago even though he did not have any actual food except liquids for the past couple of days. His abdomen appeared distended on exam. There is mild tenderness throughout the abdomen. Objective - Vital Signs Vital signs: Vital Signs Temp 99.1 F 03/31/16 07:00 Pulse 71 03/31/16 07:00 Resp 20 03/31/16 07:00 BP 168/90 03/31/16 07:00 Pulse Ox 91 L 03/31/16 07:00 Intake & Output 03/30/16 03/31/16 03/31/16 18:59 06:59 18:59 Intake Total 1240 Output Total 75 Balance 1165 Weight 108 kg 111.5 kg Intake: IV 1000 Sodium Chloride 0.9% 1, 1000 000 ml @ 125 mls/hr IV . Q8H MARIA ALEJANDRA Rx#:[id number] Oral 240 Output: Emesis 75 Other: Voiding Method Toilet Toilet Urinal # Voids 2 2 # Emeses 2 - Exam General: The patient is awake and alert, in no distress Eye: there is normal conjunctiva bilaterally. Neck: The neck is supple, there is no JVD. Cardiovascular: Normal S1-S2, no S3-S4, no murmurs. Respiratory: Lungs clear to auscultation bilaterally Gastrointestinal: Abdomen is distended Musculoskeletal: There is no pedal edema. Neurological:. Speech is normal. Skin: Skin is warm and dry - Labs CBC & Chem 7: 03/30/16 08:28 03/31/16 09:52 Labs: Abnormal Lab Results - Last 24 Hours (Table) 03/30/16 03/31/16 03/31/16 Range/Units 17:02 07:09 09:52 BUN 47 H (9-20) mg/dL Creatinine 2.84 H (0.66-1.25) mg/dL Glucose 123 H (74-99) mg/dL POC Glucose (mg/dL) 115 H 101 H (75-99) mg/dL Calcium 8.0 L (8.4-10.2) mg/dL Assessment and Plan Plan: 1. Acute kidney injury likely acute tubular necrosis. Patient has been started on hemodialysis during this admission. Renal ultrasound normal. Nephrology following closely 2. Acute pancreatitis with epigastric abdominal pain. Exact etiology unclear. Case discussed with Dr. Contreras. She is recommending further workup outpatient when patient's kidney function has shown improvement. Amylase and lipase have normalized. 3. Persistent abdominal pain and distention: I would obtain computed tomography scan of the abdomen with oral contrast for further evaluation 4. Hyperphosphatemia secondary to the acute kidney injury. Nephrology following. They have started PhosLo. Repeat lab work in the morning 5. Hypotension present on admission: Secondary to hypovolemic shock improved with IV fluids. Hold Norvasc 6. Nicotine dependence: Discussed smoking cessation during this admission. Patient refuses smoking patch at this time 7. GI prophylaxis Protonix and DVT prophylaxis subcu heparin 9. UTI: Currently on IV Rocephin. Urine culture showing no growth. Will finish 5 days course of antibiotic. Stop date tomorrow 04/01/16
[2016-03-31] MEDS: IOHEXOL 350 MG/ML 25 ML BOTTLE (ORAL USE) PO PRN ×2 (11:33→12:53)
[2016-03-31 12:35] LABS: Glucose,Whole Blood 124 mg/dL (75-99)
--- NOTE | 2016-03-31 14:19 | CT ---
EXAMINATION TYPE: CT abdomen pelvis wo con DATE OF EXAM: 03/31/2016 2:02 PM COMPARISON: NONE HISTORY: Patient having bloating since he has been in the hospital CT DLP: 1043.1 mGycm Automated exposure control for dose reduction was used. TECHNIQUE: Helical acquisition of images was performed from the lung bases through the pelvis. FINDINGS: LUNG BASES: Right lower lobe infiltrate and small bilateral effusions greater on the right noted.. Abdomen: Exam is severely limited due to the lack of IV contrast. There is abnormal attenuation in the mesente ry extending from the peripancreatic and gastric body region inferiorly. There is a large soft tissue fullness measuring 6 cm extending off the posterior wall the stomach near the gastric fundus measuri ng 16 Hounsfield units. This could represent a fluid collection or pseudocyst rather than neoplasm. C ertainly neoplasm not excluded. There is increased attenuation in the peripancreatic region on axial image 37 and there is marked thickening of the gastric wall. Differential includes pancreatitis and/o r severe gastritis. Developing pseudocyst in the differential. Peritoneal implants not excluded if a history of malignancy is present. Correlate clinically. No free air. Degenerative change of the spine noted. Bowel gas pattern nonspecific. Tiny less than 5 mm lucent les ions involving the left pelvis are nonspecific and of doubtful significance. There are scattered area s of subcutaneous edema noted. IMPRESSION: 1. DIFFUSE ABNORMAL INFLAMMATORY CHANGE THROUGHOUT THE ABDOMEN WITH THE MOST MARKED CHANGES SEEN SURR OUNDING THE PANCREAS AND GASTRIC WALL. DIFFERENTIAL INCLUDES SEVERE GASTRITIS, PEPTIC ULCER DISEASE O R MORE LIKELY PANCREATITIS. PANCREATIC NEOPLASM NOT EXCLUDED. EXAM SEVERELY LIMITED DUE TO LACK OF CO NTRAST. 2. LARGE MASS DENSITY IN THE LEFT UPPER QUADRANT IMPRESSING UPON THE POSTERIOR WALL OR INVOLVING THE POSTERIOR WALL OF THE GASTRIC FUNDUS. MEASURES ONLY 16 HOUNSFIELD UNITS AND THEREFORE MAY REPRESENT A DEVELOPING PSEUDOCYST RATHER THAN NEOPLASM. CORRELATE CLINICALLY. FOLLOW-UP EXAM WITH IV CONTRAST ON A SHORT-TERM BASIS RECOMMENDED.
--- NOTE | 2016-03-31 18:17 | PN ---
Patient is seen for follow-up for acute kidney injury. His renal function continues to improve. He states that he is feeling slightly better. On examination, blood pressure is 168/90, heart rate 71 per minute. He is afebrile. Examination of the heart S1 and S2. Examination of the lungs: Bilateral breath sounds are heard. ABDOMEN: Soft. Minimal tenderness noted. Examination of lower extremities shows trace edema bilaterally. REGISTERED RADIOGRAPHER exam is grossly intact. Labs show sodium 142, potassium 3.8, BUN 47, serum creatinine 2.84, hemoglobin is not available. Calcium is 8.0. ASSESSMENT: 1. Acute kidney injury, acute tubular necrosis, currently significantly improved. Will continue to hold off on hemodialysis and will likely discontinue the Perm-A-Cath in the next 1 to 2 days. 2. Acute pancreatitis, significantly improved. 3. Hypovolemia, significantly improved. 4. Hypophosphatemia, maintained on phosphate binders, which we can likely discontinue once the repeat phosphorus level is checked. Plan is to continue to hold off on dialysis. Check phosphorus in a.m., and I will discontinue the PhosLo, depending on the phosphorus level. His renal function has improved significantly. Therefore, hyperphosphatemia should improve on its own.
[2016-03-31] MEDS: ONDANSETRON 4 MG/2 ML VIAL IVP PRN (18:23)
[2016-04-01] MEDS: HYDROmorphone 1 MG/ML 1 ML SYRINGE IV PRN ×6 (02:06→21:08)
[2016-04-01] MEDS: ZOLPIDEM 10 MG TAB PO PRN ×2 (02:15→22:13)
[2016-04-01] MEDS: SODIUM CHLORIDE 0.9% 1,000 ML IV SCH ×2 (05:15→14:48)
[2016-04-01 07:45] LABS: Glucose,Whole Blood 89 mg/dL (75-99)
[2016-04-01] MEDS: PANTOPRAZOLE 40 MG TABLET PO SCH (08:01)
[2016-04-01] MEDS: CALCIUM ACETATE 667 MG CAP PO SCH (08:02)
[2016-04-01] MEDS: HEPARIN SODIUM,PORCINE 5,000 UNIT/ML 1 ML VIAL SQ SCH ×2 (08:02→21:08)
[2016-04-01 09:05] LABS: Calcium 7.7 mg/dL (8.4-10.2); Phosphorous 2.3 mg/dL (2.5-4.5); Potassium 3.5 mmol/L (3.5-5.1)
[2016-04-01] MEDS: HYDROcodone/APAP 10-325MG 1 EACH TAB PO PRN ×3 (09:15→22:13)
[2016-04-01 09:19] LABS: Basophils # (A) 0.1 k/uL (0-0.2); Basophils % (A) 0 %; CHCM 33.8; Eosinophils # (A) 0.1 k/uL (0-0.7); Eosinophils % (A) 0 %; HCT 28.2 % (39.0-53.0); Luc # (Auto) 0.43; Luc % (Auto) 3; Lymphocytes # (A) 0.7 k/uL (1.0-4.8); Lymphocytes % (A) 4 %; MCH 31.6 pg (25.0-35.0); MCHC 33.1 g/dL (31.0-37.0); MCV 95.4 fL (80.0-100.0); Mean Platelet Volume 8.2; Monocytes # (A) 1.6 k/uL (0-1.0); Monocytes % (A) 10 %; Neutrophils # (A) 13.2 k/uL (1.3-7.7); Neutrophils % (A) 82 %; RBC 2.96 m/uL (4.30-5.90); RDW 12.6 % (11.5-15.5); WBC (Perox) 15.94
[2016-04-01 09:20] LABS: HGB 9.4 gm/dL (13.0-17.5)
[2016-04-01 12:07] LABS: Glucose,Whole Blood 110 mg/dL (75-99)
[2016-04-01] MEDS ORDERED: Magnesium Replacement Protocol 1 EACH MISC MISCELLANE PRN ×2 (12:13→14:15)
[2016-04-01] MEDS: amLODIPine 10 MG TAB PO SCH (12:29)
--- NOTE | 2016-04-01 13:27 | P.PN ---
Subjective Patient is doing a lot better today. His abdominal pain is improved. His appetite is improving as well. Objective - Vital Signs Vital signs: Vital Signs Temp 99.0 F 04/01/16 07:00 Pulse 76 04/01/16 07:00 Resp 20 04/01/16 07:00 BP 192/100 04/01/16 07:00 Pulse Ox 94 L 04/01/16 07:00 Intake & Output 03/31/16 04/01/16 04/01/16 18:59 06:59 18:59 Intake Total 440 240 Balance 440 240 Weight 117 kg Intake: Oral 440 240 Other: Voiding Method Toilet # Voids 3 1 # Emeses 2 - Exam General: The patient is awake and alert, in no distress Eye: there is normal conjunctiva bilaterally. Neck: The neck is supple, there is no JVD. Cardiovascular: Normal S1-S2, no S3-S4, no murmurs. Respiratory: Lungs clear to auscultation bilaterally Gastrointestinal: Abdomen is soft, nontender Musculoskeletal: There is no pedal edema. Neurological:. Speech is normal. Skin: Skin is warm and dry - Labs CBC & Chem 7: 04/01/16 08:08 04/01/16 08:08 Labs: Abnormal Lab Results - Last 24 Hours (Table) 04/01/16 04/01/16 04/01/16 Range/Units 08:08 08:08 11:55 WBC 16.0 H (3.8-10.6) k/uL RBC 2.96 L (4.30-5.90) m/uL Hgb 9.4 L D (13.0-17.5) gm/dL Hct 28.2 L (39.0-53.0) % Neutrophils # 13.2 H (1.3-7.7) k/uL Lymphocytes # 0.7 L (1.0-4.8) k/uL Monocytes # 1.6 H (0-1.0) k/uL BUN 30 H (9-20) mg/dL Creatinine 1.92 H (0.66-1.25) mg/dL POC Glucose (mg/dL) 110 H (75-99) mg/dL Calcium 7.7 L (8.4-10.2) mg/dL Phosphorus 2.3 L (2.5-4.5) mg/dL Magnesium 1.0 L* (1.6-2.3) mg/dL Assessment and Plan Plan: 1. Acute kidney injury likely acute tubular necrosis. Patient has been started on hemodialysis during this admission. Renal ultrasound normal. Nephrology following closely 2. Acute pancreatitis with epigastric abdominal pain. Exact etiology unclear. Case discussed with Dr. Contreras. She is recommending further workup outpatient when patient's kidney function has shown improvement. Amylase and lipase have normalized. 3. Possible pancreatic mass/pseudocyst: Will need repeat imaging with IV contrast when kidney recovered. Patient is improving clinically. 4. Hyperphosphatemia: Resolved with improvement in kidney function. I would discontinue PhosLo 5. Hypotension present on admission: Secondary to hypovolemic shock improved with IV fluids. Resume some of his blood pressure medication 6. Nicotine dependence: Discussed smoking cessation during this admission. Patient refuses smoking patch at this time 7. GI prophylaxis Protonix and DVT prophylaxis subcu heparin 9. UTI: Finished 5 days course of IV Rocephin. Urine culture showing no growth
[2016-04-01] MEDS: MAGNESIUM SULFATE-D5W PMX 1 GM in DEXTROSE/WATER 1 100ML.BAG IVPB SCH ×3 (14:48→18:20)
[2016-04-01] MEDS: ONDANSETRON 4 MG/2 ML VIAL IVP PRN ×2 (14:56→21:08)
[2016-04-01 17:15] LABS: Glucose,Whole Blood 109 mg/dL (75-99)
--- NOTE | 2016-04-01 19:39 | PN ---
Patient is seen for follow-up for acute kidney injury. He had 2 treatments of hemodialysis and his renal function has started to improve and recover on its own. He continues to have good urine output and serum creatinine continues to decline. It is down to 1.92 mg/dL now from 2.8 yesterday. Patient is currently resting. He is comfortable, not in any acute distress. Blood pressure is 192/100, heart rate 76 per minute. He is afebrile. Examination of the heart S1 and S2. Examination of the lungs: Bilateral breath sounds are heard. Decreased breath sounds in bases. Abdomen is soft. No significant tenderness noted. Examination of lower extremities shows no significant edema. ERGONOMICS TECHNICIAN exam is grossly intact. Labs show sodium 142, potassium 3.5, BUN 30, serum creatinine 1.92, magnesium was 1.0. Phosphorus 2.3. ASSESSMENT: 1. Acute kidney injury, acute tubular necrosis, currently significantly improved. Will likely discontinue the Perm-A-Cath in the next 24 hours. 2. Severe hypomagnesemia status post replacement. 3. Hyperphosphatemia with improved phosphorus level and currently serum phosphorus is low, we can discontinue the phosphate binders. PLAN: Encourage increased oral intake. Will discontinue the Perm-A-Cath tomorrow.
[2016-04-01 21:28] LABS: Glucose,Whole Blood 99 mg/dL (75-99)
[2016-04-02] MEDS: HYDROmorphone 1 MG/ML 1 ML SYRINGE IV PRN ×7 (00:27→21:59)
[2016-04-02] MEDS: ONDANSETRON 4 MG/2 ML VIAL IVP PRN (03:29)
[2016-04-02] MEDS: HYDROcodone/APAP 10-325MG 1 EACH TAB PO PRN ×4 (04:27→21:19)
[2016-04-02 07:38] LABS: Glucose,Whole Blood 98 mg/dL (75-99)
[2016-04-02] MEDS: amLODIPine 10 MG TAB PO SCH (08:04)
[2016-04-02] MEDS: HEPARIN SODIUM,PORCINE 5,000 UNIT/ML 1 ML VIAL SQ SCH ×2 (08:04→20:09)
[2016-04-02] MEDS: PANTOPRAZOLE 40 MG TABLET PO SCH (08:04)
[2016-04-02 09:13] LABS: Basophils # (A) 0.1 k/uL (0-0.2); Basophils % (A) 1 %; CH 31.8; CHCM 33.8; Eosinophils % (A) 0 %; HCT 33.2 % (39.0-53.0); Luc # (Auto) 0.26; Luc % (Auto) 2; Lymphocytes # (A) 0.5 k/uL (1.0-4.8); Lymphocytes % (A) 4 %; MCH 31.4 pg (25.0-35.0); MCHC 33.2 g/dL (31.0-37.0); MCV 94.7 fL (80.0-100.0); Mean Platelet Volume 7.3; Monocytes # (A) 0.4 k/uL (0-1.0); Monocytes % (A) 4 %; Neutrophils # (A) 9.3 k/uL (1.3-7.7); Neutrophils % (A) 88 %; RDW 12.6 % (11.5-15.5); WBC 10.5 k/uL (3.8-10.6); WBC (Perox) 11.23
[2016-04-02 09:33] LABS: Anion Gap 13 mmol/L; Blood Urea Nitrogen 17 mg/dL (9-20); Calcium 7.5 mg/dL (8.4-10.2); Carbon Dioxide 30 mmol/L (22-30); Chloride 97 mmol/L (98-107); Glucose 123 mg/dL (74-99); Magnesium 1.2 mg/dL (1.6-2.3); Non-African American GFR(MDRD) 52 (>60 ml/min/1.73 sqM); Phosphorous 2.6 mg/dL (2.5-4.5); Potassium 3.5 mmol/L (3.5-5.1); Sodium 140 mmol/L (137-145)
[2016-04-02] MEDS ORDERED: Magnesium Replacement Protocol 1 EACH MISC MISCELLANE PRN (10:33)
[2016-04-02] MEDS: MAGNESIUM SULFATE-D5W PMX 1 GM in DEXTROSE/WATER 1 100ML.BAG IVPB SCH ×3 (11:06→14:45)
[2016-04-02 12:00] LABS: Glucose,Whole Blood 141 mg/dL (75-99)
--- NOTE | 2016-04-02 12:10 | P.PN ---
Subjective Acute renal failure and acute pancreatitis Patient still having some episodes of vomiting. Decreased appetite. Complaining of hiccups today. Did have small bowel movements yesterday. Denies any chest pain or shortness of breath. Has been making urine. Objective - Vital Signs Vital signs: Vital Signs Temp 98.5 F 04/02/16 07:00 Pulse 63 04/02/16 07:00 Resp 20 04/02/16 07:00 BP 155/82 04/02/16 07:00 Pulse Ox 98 04/02/16 07:00 Intake & Output 04/01/16 04/02/16 04/02/16 18:59 06:59 18:59 Intake Total 1580 Output Total 1 Balance 1580 -1 Weight 116.5 kg Intake: IV 1000 Sodium Chloride 0.9% 1, 1000 000 ml @ 125 mls/hr IV . Q8H MARIA ALEJANDRA Rx#:[id number] Intake, IV Titration 100 Amount Magnesium Sulfate-D5w Pmx 100 1 gm In Dextrose/Water 1 100ml.bag @ 100 mls/hr IVPB Q1H MARIA ALEJANDRA Rx#: [id number] Oral 480 Output: Emesis 1 Other: Voiding Method Toilet Toilet # Voids 1 1 # Emeses 1 - Exam Head normocephalic Neck supple Lungs clear to auscultation bilaterally no wheezing or crackles Heart regular rate and rhythm S1-S2, no rub or gallop Abdomen is soft diffuse tenderness but mostly epigastric Extremities no edema Neuro alert and orientated to 3 - Labs CBC & Chem 7: 04/02/16 08:08 04/02/16 08:08 Labs: Abnormal Lab Results - Last 24 Hours (Table) 04/01/16 04/01/16 04/02/16 Range/Units 11:55 17:08 08:08 RBC 3.50 L (4.30-5.90) m/uL Hgb 11.0 L (13.0-17.5) gm/dL Hct 33.2 L (39.0-53.0) % Neutrophils # 9.3 H (1.3-7.7) k/uL Lymphocytes # 0.5 L (1.0-4.8) k/uL Chloride (98-107) mmol/L Creatinine (0.66-1.25) mg/dL Glucose (74-99) mg/dL POC Glucose (mg/dL) 110 H 109 H (75-99) mg/dL Calcium (8.4-10.2) mg/dL Magnesium (1.6-2.3) mg/dL 04/02/16 04/02/16 Range/Units 08:08 11:58 RBC (4.30-5.90) m/uL Hgb (13.0-17.5) gm/dL Hct (39.0-53.0) % Neutrophils # (1.3-7.7) k/uL Lymphocytes # (1.0-4.8) k/uL Chloride 97 L (98-107) mmol/L Creatinine 1.47 H (0.66-1.25) mg/dL Glucose 123 H (74-99) mg/dL POC Glucose (mg/dL) 141 H (75-99) mg/dL Calcium 7.5 L (8.4-10.2) mg/dL Magnesium 1.2 L (1.6-2.3) mg/dL Assessment and Plan Plan: 1. Acute kidney injury likely acute tubular necrosis secondary to patient's dehydration from his vomiting and hypotension. Patient has been started on hemodialysis during this admission. He has been currently off of hemodialysis. Creatinine 1.47 Renal ultrasound normal. Nephrology following closely 2. Acute pancreatitis with epigastric abdominal pain. Exact etiology unclear. Case discussed with Dr. Contreras. She is recommending further workup outpatient when patient's kidney function has shown improvement. Amylase and lipase have normalized. 3. Possible pancreatic mass/pseudocyst: Will need repeat imaging with IV contrast when kidney recovered. 4. Hyperphosphatemia secondary to the acute kidney injury. Improved 5. Hypotension on admission secondary to hypovolemic shock improved with IV fluids. Norvasc resumed yesterday. Blood pressure stable today 6. UTI: Finish 5 days course of IV Rocephin. Urine culture shows no growth. 7. Nicotine dependence: Discussed smoking cessation for greater than 3 minutes and less than 10 minutes. Patient refuses smoking patch at this time 8. GI prophylaxis Protonix and DVT prophylaxis subcu heparin 9. Possible UTI: Currently on IV Rocephin. Urine culture showing no growth
[2016-04-02] MEDS ORDERED: LIDOCAINE 1% INJ 10MG/ML (20 ML MDV) SQ ONE (16:17)
[2016-04-02] MEDS: chlorproMAZINE 25 MG TAB PO SCH ×2 (16:19→21:18)
[2016-04-02 17:20] LABS: Glucose,Whole Blood 109 mg/dL (75-99)
--- NOTE | 2016-04-02 19:25 | PN ---
Patient is seen for follow-up for acute kidney injury which was mainly acute tubular necrosis. Patient's renal function continues to improve. He had 2 treatments of hemodialysis. This afternoon he is lying in bed. He states he just threw up. He denies any other significant complaints. Labs show serum creatinine down to 1.47, sodium 140, potassium 3.5, magnesium was 1.2. ASSESSMENT: 1. Acute kidney injury, acute tubular necrosis, currently nonoliguric with significantly improved renal function. We will discontinue the IJ Perm-A-Cath. 2. Hypertension, maintained on Norvasc. IV fluids have been decreased. 3. Nausea, most likely related to pancreatitis. His lipase level was down to 197 on 03/29/2016. PLAN: Discontinue IJ Perm-A-Cath. Continue to avoid nephrotoxic agents.
[2016-04-02 21:27] LABS: Glucose,Whole Blood 106 mg/dL (75-99)
[2016-04-03] MEDS: ZOLPIDEM 10 MG TAB PO PRN ×2 (01:03→23:52)
[2016-04-03] MEDS: HYDROmorphone 1 MG/ML 1 ML SYRINGE IV PRN ×5 (01:03→13:20)
[2016-04-03] MEDS: HYDROcodone/APAP 10-325MG 1 EACH TAB PO PRN ×4 (02:52→23:51)
[2016-04-03 07:28] LABS: Glucose,Whole Blood 94 mg/dL (75-99)
[2016-04-03 08:02] LABS: Anion Gap 7 mmol/L; Blood Urea Nitrogen 12 mg/dL (9-20); Calcium 7.4 mg/dL (8.4-10.2); Carbon Dioxide 34 mmol/L (22-30); Chloride 95 mmol/L (98-107); Glucose 99 mg/dL (74-99); Magnesium 1.3 mg/dL (1.6-2.3); Non-African American GFR(MDRD) >60 (>60 ml/min/1.73 sqM); Phosphorous 2.4 mg/dL (2.5-4.5); Potassium 3.4 mmol/L (3.5-5.1); Sodium 136 mmol/L (137-145)
[2016-04-03 08:12] LABS: Basophils % (A) 0 %; CH 31.9; CHCM 34.4; Eosinophils # (A) 0.1 k/uL (0-0.7); Eosinophils % (A) 1 %; HCT 32.6 % (39.0-53.0); HDW 2.87; HGB 10.9 gm/dL (13.0-17.5); Luc # (Auto) 0.37; Luc % (Auto) 4; Lymphocytes # (A) 0.6 k/uL (1.0-4.8); Lymphocytes % (A) 6 %; MCH 31.3 pg (25.0-35.0); MCHC 33.6 g/dL (31.0-37.0); MCV 93.2 fL (80.0-100.0); Mean Platelet Volume 7.2; Monocytes # (A) 0.5 k/uL (0-1.0); Monocytes % (A) 5 %; Neutrophils # (A) 7.6 k/uL (1.3-7.7); Neutrophils % (A) 83 %; RDW 12.5 % (11.5-15.5); WBC 9.1 k/uL (3.8-10.6); WBC (Perox) 9.48
--- NOTE | 2016-04-03 08:28 | PCN ---
DATE OF PROCEDURE: PREOPERATIVE DIAGNOSIS: Acute and chronic renal failure. PROCEDURE: Removal of dialysis catheter right jugular approach. This patient came with acute chronic renal failure and pancreatitis. Kidney functions are better. I was called in for removal of dialysis catheter, which was placed in the past. Right side neck and chest was prepped and drapes were applied in the usual sterile manner. 1% lidocaine infiltrated and went circumferentially around the cuff of the catheter. Catheter removed. Pressure dressing was applied. The patient tolerated the procedure well.
[2016-04-03] MEDS ORDERED: Magnesium Replacement Protocol 1 EACH MISC MISCELLANE PRN (08:46)
[2016-04-03] MEDS ORDERED: Potassium Replacement Protocol 1 EACH MISC MISCELLANE PRN ×2 (09:35→17:58)
[2016-04-03] MEDS: PANTOPRAZOLE 40 MG TABLET PO SCH (09:37)
[2016-04-03] MEDS: amLODIPine 10 MG TAB PO SCH (09:37)
[2016-04-03] MEDS: MAGNESIUM SULFATE-D5W PMX 1 GM in DEXTROSE/WATER 1 100ML.BAG IVPB SCH ×3 (09:37→13:15)
[2016-04-03] MEDS: ONDANSETRON 4 MG/2 ML VIAL IVP PRN ×3 (09:37→22:12)
[2016-04-03] MEDS: HEPARIN SODIUM,PORCINE 5,000 UNIT/ML 1 ML VIAL SQ SCH ×2 (09:37→22:12)
[2016-04-03] MEDS: chlorproMAZINE 25 MG TAB PO SCH ×3 (09:37→22:12)
[2016-04-03] MEDS ORDERED: POTASSIUM CHLORIDE ER 20 MEQ TAB.ER PO STA (10:26)
[2016-04-03] MEDS: POTASSIUM CHLORIDE ER 20 MEQ TAB.ER PO SCH ×4 (10:27→20:56)
--- NOTE | 2016-04-03 11:32 | P.PN ---
Subjective Patient is seen in follow-up for acute kidney injury. Patient presented with acute pancreatitis and did require hemodialysis temporarily. The permacath was discontinued yesterday. His creatinine today is 1.2. Admits to good urine output. Appetite is slowly improving. No vomiting or diarrhea. Vital signs are stable. General: The patient appeared well nourished and normally developed. HEENT: Head exam is unremarkable. Neck is without jugular venous distension. LUNGS: Lungs are clear to auscultation and percussion. Breath sounds decreased. HEART: Rate and Rhythm are regular. First and second heart sounds normal. No murmurs, rubs or gallops. ABDOMEN: Abdominal exam reveals normal bowel sounds. Non-tender and non- distended. No evidence of peritonitis. EXTREMITITES: No clubbing, cyanosis, or edema. Objective - Vital Signs Vital signs: Vital Signs Temp 98 F 04/03/16 07:00 Pulse 64 04/03/16 11:20 Resp 20 04/03/16 07:00 BP 148/81 04/03/16 11:20 Pulse Ox 96 04/03/16 07:00 Intake & Output 04/02/16 04/03/16 04/03/16 18:59 06:59 18:59 Weight 121.5 kg Other: Voiding Method Toilet Toilet Toilet # Voids 2 1 - Labs CBC & Chem 7: 04/03/16 07:31 04/03/16 07:31 Labs: Abnormal Lab Results - Last 24 Hours (Table) 04/02/16 04/02/16 04/02/16 Range/Units 11:58 17:18 21:25 RBC (4.30-5.90) m/uL Hgb (13.0-17.5) gm/dL Hct (39.0-53.0) % Lymphocytes # (1.0-4.8) k/uL Sodium (137-145) mmol/L Potassium (3.5-5.1) mmol/L Chloride (98-107) mmol/L Carbon Dioxide (22-30) mmol/L POC Glucose (mg/dL) 141 H 109 H 106 H (75-99) mg/dL Calcium (8.4-10.2) mg/dL Phosphorus (2.5-4.5) mg/dL Magnesium (1.6-2.3) mg/dL 04/03/16 04/03/16 Range/Units 07:31 07:31 RBC 3.50 L (4.30-5.90) m/uL Hgb 10.9 L (13.0-17.5) gm/dL Hct 32.6 L (39.0-53.0) % Lymphocytes # 0.6 L (1.0-4.8) k/uL Sodium 136 L (137-145) mmol/L Potassium 3.4 L (3.5-5.1) mmol/L Chloride 95 L (98-107) mmol/L Carbon Dioxide 34 H (22-30) mmol/L POC Glucose (mg/dL) (75-99) mg/dL Calcium 7.4 L (8.4-10.2) mg/dL Phosphorus 2.4 L (2.5-4.5) mg/dL Magnesium 1.3 L (1.6-2.3) mg/dL Assessment and Plan Plan: Assessment: #1. Nonoliguric acute kidney injury secondary to ischemic ATN. Status post 2 treatments of hemodialysis. Improved. Creatinine 1.2 today. #2. Acute pancreatitis. Improving. #3. Hypertension. #4. Hypokalemia secondary to poor oral intake and hypomagnesemia. #5. Hypomagnesemia. Plan: Avoid nephrotoxic agents. Replace magnesium. 3 g today. Replace potassium. 40 mEq today. Permacath was discontinued on April 02. Repeat electrolytes the morning. Encourage oral intake as tolerated.
[2016-04-03] MEDS: hydrALAZINE HCL 25 MG TAB PO SCH ×2 (11:50→22:13)
[2016-04-03 12:50] LABS: Glucose,Whole Blood 112 mg/dL (75-99)
--- NOTE | 2016-04-03 14:01 | P.PN ---
Subjective Patient is doing better today. He is complaining of persistent hiccups Objective - Vital Signs Vital signs: Vital Signs Temp 98 F 04/03/16 07:00 Pulse 75 04/03/16 11:51 Resp 20 04/03/16 07:00 BP 160/87 04/03/16 11:51 Pulse Ox 96 04/03/16 07:00 Intake & Output 04/02/16 04/03/16 04/03/16 18:59 06:59 18:59 Weight 121.5 kg Other: Voiding Method Toilet Toilet Toilet # Voids 2 1 - Exam General: The patient is awake and alert, in no distress Eye: there is normal conjunctiva bilaterally. Neck: The neck is supple, there is no JVD. Cardiovascular: Normal S1-S2, no S3-S4, no murmurs. Respiratory: Lungs clear to auscultation bilaterally Gastrointestinal: Abdomen is soft, nontender Musculoskeletal: There is no pedal edema. Neurological:. Speech is normal. Skin: Skin is warm and dry - Labs CBC & Chem 7: 04/03/16 07:31 04/03/16 07:31 Labs: Abnormal Lab Results - Last 24 Hours (Table) 04/02/16 04/02/16 04/03/16 Range/Units 17:18 21:25 07:31 RBC 3.50 L (4.30-5.90) m/uL Hgb 10.9 L (13.0-17.5) gm/dL Hct 32.6 L (39.0-53.0) % Lymphocytes # 0.6 L (1.0-4.8) k/uL Sodium (137-145) mmol/L Potassium (3.5-5.1) mmol/L Chloride (98-107) mmol/L Carbon Dioxide (22-30) mmol/L POC Glucose (mg/dL) 109 H 106 H (75-99) mg/dL Calcium (8.4-10.2) mg/dL Phosphorus (2.5-4.5) mg/dL Magnesium (1.6-2.3) mg/dL 04/03/16 04/03/16 Range/Units 07:31 12:47 RBC (4.30-5.90) m/uL Hgb (13.0-17.5) gm/dL Hct (39.0-53.0) % Lymphocytes # (1.0-4.8) k/uL Sodium 136 L (137-145) mmol/L Potassium 3.4 L (3.5-5.1) mmol/L Chloride 95 L (98-107) mmol/L Carbon Dioxide 34 H (22-30) mmol/L POC Glucose (mg/dL) 112 H (75-99) mg/dL Calcium 7.4 L (8.4-10.2) mg/dL Phosphorus 2.4 L (2.5-4.5) mg/dL Magnesium 1.3 L (1.6-2.3) mg/dL Assessment and Plan Plan: 1. Acute kidney injury likely acute tubular necrosis. Now kidney function recovered and back to normal. Patient has been started on hemodialysis during this admission, now catheter access was removed. Renal ultrasound normal. Nephrology following closely 2. Acute pancreatitis with epigastric abdominal pain. Exact etiology unclear. Case discussed with Dr. Contreras. She is recommending further workup outpatient when patient's kidney function has shown improvement. Amylase and lipase have normalized. 3. Possible pancreatic mass/pseudocyst: Patient is improving clinically. 4. Hyperphosphatemia: Resolved with improvement in kidney function. I would discontinue PhosLo 5. Hypotension present on admission: Secondary to hypovolemic shock improved with IV fluids. Resume some of his blood pressure medication 6. Nicotine dependence: Discussed smoking cessation during this admission. Patient refuses smoking patch at this time 7. GI prophylaxis Protonix and DVT prophylaxis subcu heparin 9. UTI: Finished 5 days course of IV Rocephin. Urine culture showing no growth Encourage oral intake. Anticipate discharge home within the next day or 2.
[2016-04-03 17:21] LABS: Glucose,Whole Blood 98 mg/dL (75-99)
[2016-04-03] MEDS ORDERED: HYDROmorphone 1 MG/ML 1 ML SYRINGE IVP STA (21:19)
[2016-04-03] MEDS: MAG HYDROX/AL HYDROX/SIMETH 30 ML CUP PO SCH (22:13)
[2016-04-04 00:16] LABS: Potassium 3.2 mmol/L (3.5-5.1)
[2016-04-04] MEDS: HYDROcodone/APAP 10-325MG 1 EACH TAB PO PRN ×2 (05:58→12:09)
[2016-04-04] MEDS: MAG HYDROX/AL HYDROX/SIMETH 30 ML CUP PO SCH ×2 (05:58→12:09)
[2016-04-04 07:19] LABS: Glucose,Whole Blood 101 mg/dL (75-99)
[2016-04-04] MEDS: chlorproMAZINE 25 MG TAB PO SCH (09:08)
[2016-04-04] MEDS: PANTOPRAZOLE 40 MG TABLET PO SCH (09:08)
[2016-04-04] MEDS: hydrALAZINE HCL 25 MG TAB PO SCH (09:08)
[2016-04-04] MEDS: amLODIPine 10 MG TAB PO SCH (09:08)
[2016-04-04 09:42] LABS: Anion Gap 8 mmol/L; Blood Urea Nitrogen 9 mg/dL (9-20); Calcium 7.6 mg/dL (8.4-10.2); Carbon Dioxide 34 mmol/L (22-30); Chloride 96 mmol/L (98-107); Glucose 120 mg/dL (74-99); Magnesium 1.2 mg/dL (1.6-2.3); Non-African American GFR(MDRD) >60 (>60 ml/min/1.73 sqM); Phosphorous 2.6 mg/dL (2.5-4.5); Potassium 3.3 mmol/L (3.5-5.1); Sodium 138 mmol/L (137-145)
[2016-04-04] MEDS ORDERED: Magnesium Replacement Protocol 1 EACH MISC MISCELLANE PRN (09:55)
[2016-04-04 09:57] LABS: Aty Lym Flag Slight; CH 31.9; CHCM 34.5; HCT 33.5 % (39.0-53.0); HDW 2.93; HGB 11.3 gm/dL (13.0-17.5); MCH 31.4 pg (25.0-35.0); MCHC 33.8 g/dL (31.0-37.0); MCV 92.8 fL (80.0-100.0); RBC 3.61 m/uL (4.30-5.90); RDW 12.6 % (11.5-15.5); WBC 9.9 k/uL (3.8-10.6); WBC (Perox) 10.65
[2016-04-04] MEDS ORDERED: Potassium Replacement Protocol 1 EACH MISC MISCELLANE PRN (09:58)
[2016-04-04 10:38] LABS: Add Differential Manual Differential
[2016-04-04 10:39] LABS: Nucleated Red Blood Cells 0 /100 WBC (0-0); Total Cells Counted 100
[2016-04-04 10:40] LABS: RBC Morphology Normal
[2016-04-04] MEDS: MAGNESIUM SULFATE-D5W PMX 1 GM in DEXTROSE/WATER 1 100ML.BAG IVPB SCH ×3 (11:14→15:42)
--- NOTE | 2016-04-04 11:14 | P.PN ---
Subjective Patient is seen in follow-up for acute kidney injury. Patient presented with acute pancreatitis and did require hemodialysis temporarily. The permacath was discontinued on April 02. His creatinine today is 1.1. Admits to good urine output. Appetite is slowly improving. Did have 1 episode of emesis yesterday. No diarrhea. Vital signs are stable. General: The patient appeared well nourished and normally developed. HEENT: Head exam is unremarkable. Neck is without jugular venous distension. LUNGS: Lungs are clear to auscultation and percussion. Breath sounds decreased. HEART: Rate and Rhythm are regular. First and second heart sounds normal. No murmurs, rubs or gallops. ABDOMEN: Abdominal exam reveals normal bowel sounds. Non-tender and non- distended. No evidence of peritonitis. EXTREMITITES: No clubbing, cyanosis, or edema. Objective - Vital Signs Vital signs: Vital Signs Temp 97 F L 04/04/16 07:00 Pulse 69 04/04/16 07:00 Resp 20 04/04/16 07:00 BP 155/95 04/04/16 07:00 Pulse Ox 97 04/04/16 07:00 Intake & Output 04/03/16 04/04/16 04/04/16 18:59 06:59 18:59 Other: Voiding Method Toilet # Voids 3 2 # [place] 3 - Labs CBC & Chem 7: 04/04/16 08:35 04/04/16 08:35 Labs: Abnormal Lab Results - Last 24 Hours (Table) 04/03/16 04/03/16 04/03/16 Range/Units 12:47 15:07 23:53 RBC (4.30-5.90) m/uL Hgb (13.0-17.5) gm/dL Hct (39.0-53.0) % Neutrophils # (Manual) (1.3-7.7) k/uL Lymphocytes # (Manual) (1.0-4.8) k/uL Sodium 136 L (137-145) mmol/L Potassium 3.1 L 3.2 L (3.5-5.1) mmol/L Chloride 96 L (98-107) mmol/L Carbon Dioxide (22-30) mmol/L Glucose (74-99) mg/dL POC Glucose (mg/dL) 112 H (75-99) mg/dL Calcium (8.4-10.2) mg/dL Magnesium (1.6-2.3) mg/dL 04/04/16 04/04/16 04/04/16 Range/Units 07:14 08:35 08:35 RBC 3.61 L (4.30-5.90) m/uL Hgb 11.3 L (13.0-17.5) gm/dL Hct 33.5 L (39.0-53.0) % Neutrophils # (Manual) 8.6 H (1.3-7.7) k/uL Lymphocytes # (Manual) 0.4 L (1.0-4.8) k/uL Sodium (137-145) mmol/L Potassium 3.3 L (3.5-5.1) mmol/L Chloride 96 L (98-107) mmol/L Carbon Dioxide 34 H (22-30) mmol/L Glucose 120 H (74-99) mg/dL POC Glucose (mg/dL) 101 H (75-99) mg/dL Calcium 7.6 L (8.4-10.2) mg/dL Magnesium 1.2 L (1.6-2.3) mg/dL Assessment and Plan Plan: Assessment: #1. Nonoliguric acute kidney injury secondary to ischemic ATN. Status post 2 treatments of hemodialysis. Improved. Creatinine 1.1 today. #2. Acute pancreatitis. Improving. #3. Hypertension. #4. Hypokalemia secondary to poor oral intake and hypomagnesemia. #5. Hypomagnesemia. Plan: Avoid nephrotoxic agents. Replace magnesium. 3 g today. Replace potassium. 60 mEq today. Permacath was discontinued on April 02. Repeat electrolytes the morning. Encourage oral intake as tolerated.
[2016-04-04] MEDS: POTASSIUM CHLORIDE ER 20 MEQ TAB.ER PO SCH ×2 (11:15→12:09)
[2016-04-04] MEDS: HEPARIN SODIUM,PORCINE 5,000 UNIT/ML 1 ML VIAL SQ SCH (12:09)
[2016-04-04 12:14] LABS: Glucose,Whole Blood 130 mg/dL (75-99)
--- NOTE | 2016-04-04 14:08 | P.DS ---
Providers Date of admission: 03/25/16 20:55 Expected date of discharge: 04/04/16 Attending physician: Debora Whiting Consults: 03/26/16 11:57 Consult Physician Stat Consulting Provider: Orlando Dyer Consult Reason/Comments: Permacath Do you want consulting provider notified?: Yes Primary care physician: [facility] Course: 1. Acute kidney injury likely acute tubular necrosis. Now kidney function recovered and back to normal. Patient has been started on hemodialysis during this admission, now catheter access was removed. Renal ultrasound normal. Nephrology following closely 2. Acute pancreatitis with epigastric abdominal pain. Exact etiology unclear. Case discussed with Dr. Contreras. She is recommending further workup outpatient when patient's kidney function has shown improvement. Amylase and lipase have normalized. 3. Possible pancreatic mass/pseudocyst: Patient is improving clinically. 4. Hyperphosphatemia: Resolved with improvement in kidney function. I would discontinue PhosLo 5. Hypotension present on admission: Secondary to hypovolemic shock improved with IV fluids. Resume some of his blood pressure medication 6. Nicotine dependence: Discussed smoking cessation during this admission. Patient refuses smoking patch at this time 7. GI prophylaxis Protonix and DVT prophylaxis subcu heparin 9. UTI: Finished 5 days course of IV Rocephin. Urine culture showing no growth Encourage oral intake. Anticipate discharge home within the next day or 2. Patient Condition at Discharge: Serious Plan - Discharge Summary New Discharge Prescriptions: Magnesium Oxide 400 mg PO DAILY #10 tablet Pantoprazole [Protonix] 40 mg PO DAILY #30 tablet. Potassium Chloride ER [K-Dur 10] 10 meq PO DAILY #5 tab hydrALAZINE HCL 25 mg PO BID #60 tablet Discharge Medication List HYDROcodone/APAP 10-325MG [[place] 10-325] 1 tab PO BID PRN 03/25/16 [History] amLODIPine [Norvasc] 10 mg PO DAILY 03/25/16 [History] traZODone HCL [Desyrel] 100 mg PO HS PRN 03/25/16 [History] Magnesium Oxide 400 mg PO DAILY #10 tablet 04/04/16 [Rx] Pantoprazole [Protonix] 40 mg PO DAILY #30 tablet. 04/04/16 [Rx] Potassium Chloride ER [K-Dur 10] 10 meq PO DAILY #5 tab 04/04/16 [Rx] hydrALAZINE HCL 25 mg PO BID #60 tablet 04/04/16 [Rx] Follow up Appointment(s)/Referral(s): Yoan Tovar MD [Primary Care Provider] - 3 Days Discharge Disposition: HOME SELF-CARE
[2016-04-04 14:52] VITALS: BP 155/87; PULSE 83; RESP 18; TEMP 98.3
== END 2016-04-04 15:37 | disposition home or self-care (01) | DRG 682 ==
LOC: EC 16:27 → 6SEL 20:55 → 4MS4W 03-28 13:41
PROVIDERS: ADMIT Internal Medicine; ATTEND Internal Medicine
PROC: 06H033Z Insertion of Infusion Device into Inferior Vena Cava, Percutaneous Approach (ICD-10-PCS; principal; 2016-03-27 08:00)
PROC: B549ZZA Ultrasonography of Inferior Vena Cava, Guidance (ICD-10-PCS; 2016-03-27 08:00)
PROC: 5A1D60Z (ICD-10-PCS; 2016-03-27 08:00)
PROC: 0WP Anatomical Regions, General, Removal (ICD-10-PCS; 2016-04-02)
DX: N17.0 Acute kidney failure with tubular necrosis (principal); K85.90 Acute pancreatitis without necrosis or infection, unspecified; R57.1 Hypovolemic shock; N39.0 Urinary tract infection, site not specified; E83.39 Other disorders of phosphorus metabolism; F17.200 Nicotine dependence, unspecified, uncomplicated; G89.29 Other chronic pain; M54.9 Dorsalgia, unspecified; F12.90 Cannabis use, unspecified, uncomplicated; E83.52 Hypercalcemia; E87.6 Hypokalemia; D64.9 Anemia, unspecified; E83.42 Hypomagnesemia; R06.6 Hiccough; I10 Essential (primary) hypertension; Z99.2 Dependence on renal dialysis; Z86.59 Personal history of other mental and behavioral disorders; Z79.899 Other long term (current) drug therapy
CPT/HCPCS: 36415; 36558; 51702; 71010; 74020; 74176; 76700; 76770; 76937; 77001; 80048; 80051; 80053; 81001; 82150; 82550; 83036; 83605; 83690; 83735; 84100; 84132; 84478; 85025; 85610; 87086; 90935; 96361; 96374; 96375; 99285

== ENCOUNTER 2016-04-05 03:34 | Emergency (ER) | payer OTHER ==
[2016-04-05 03:42] VITALS: BP 145/90; PULSE 91; RESP 18; TEMP 97.7
--- NOTE | 2016-04-05 03:56 | ED ---
General Adult HPI - General Chief complaint: Abdominal Pain Stated complaint: urine retention, dehydration Time Seen by Provider: 04/05/16 03:40 Source: patient, RN notes reviewed Mode of arrival: ambulatory Limitations: no limitations - History of Present Illness Initial comments: This is a 45-year-old male who presents to the emergency department after having been discharged from the hospital yesterday afternoon. Patient states was in the hospital for renal failure and acute pancreatitis neither of which she states he knows why he was afflicted with these. Patient states he went home today he was urinating easily urinating a trickle of urine not a very good flow and he was concerned about that so he came in. Patient denies any significant abdominal pain he has a little suprapubic pressure but no burning when he urinates. Patient denies any back pain. Patient denies any nausea vomiting diarrhea per patient denies any chest pain difficult breathing or shortness of breath per patient denies any recent fever or chills. - Related Data Home Medications Medication Instructions Recorded Confirmed HYDROcodone/APAP 10-325MG [[place] 1 tab PO BID PRN 03/25/16 03/25/16 10-325] amLODIPine [Norvasc] 10 mg PO DAILY 03/25/16 03/25/16 traZODone HCL [Desyrel] 100 mg PO HS PRN 03/25/16 03/25/16 Previous Rx's Medication Instructions Recorded Magnesium Oxide 400 mg PO DAILY #10 tablet 04/04/16 Pantoprazole [Protonix] 40 mg PO DAILY #30 tablet. 04/04/16 Potassium Chloride ER [K-Dur 10] 10 meq PO DAILY #5 tab 04/04/16 hydrALAZINE HCL 25 mg PO BID #60 tablet 04/04/16 Allergies Allergy/AdvReac Type Severity Reaction Status Date / Time No Known Allergies Allergy Verified 03/25/16 19:31 Review of Systems ROS Statement: Those systems with pertinent positive or pertinent negative responses have been documented in the HPI. ROS Other: All systems not noted in ROS Statement are negative. Past Medical History Past Medical History: Hypertension Additional Past Medical History / Comment(s): chronic back pain L1 - L5 History of Any Multi-Drug Resistant Organisms: None Reported Past Surgical History: Orthopedic Surgery Additional Past Surgical History / Comment(s): knee Past Anesthesia/Blood Transfusion Reactions: No Reported Reaction Past Psychological History: No Psychological Hx Reported Smoking Status: Current every day smoker Past Alcohol Use History: Occasional Past Drug Use History: Marijuana - Past Family History Mother Family Medical History: Cancer Additional Family Medical History / Comment(s): cancer - cervical Father Family Medical History: Renal Disease Additional Family Medical History / Comment(s): Dad had renal failure General Exam - General Exam Comments Initial Comments: GENERAL: Patient is well-developed and well-nourished. Patient is nontoxic and well- hydrated and is in no acute distress. ENT: Neck is soft and supple. No significant lymphadenopathy is noted. Oropharynx is clear. Moist mucous membranes. Neck has full range of motion without eliciting any pain. EYES: The sclera were anicteric and conjunctiva were pink and moist. Extraocular movements were intact and pupils were equal round and reactive to light. Eyelids were unremarkable. PULMONARY: Unlabored respirations. Good breath sounds bilaterally. No audible rales rhonchi or wheezing was noted. CARDIOVASCULAR: There is a regular rate and rhythm without any murmurs gallops or rubs. ABDOMEN: Soft and nontender with normal bowel sounds. No palpable organomegaly was noted. There is no palpable pulsatile mass. SKIN: Skin is clear with no lesions or rashes and otherwise unremarkable. NEUROLOGIC: Patient is alert and oriented x3. Cranial nerves II through XII are grossly intact. Motor and sensory are also intact. Normal speech, volume and content. Symmetrical smile. MUSCULOSKELETAL: Normal extremities with adequate strength and full range of motion. LYMPHATICS: No significant lymphadenopathy is noted PSYCHIATRIC: Normal psychiatric evaluation. Normal interpersonal interactions appears functionally intact in deals appropriately with others. No signs of depression. Limitations: no limitations Course Vital Signs 04/05/16 03:40 Temperature 97.7 F Pulse Rate 91 Respiratory 18 Rate Blood Pressure 145/90 O2 Sat by Pulse 100 Oximetry Medical Decision Making - Lab Data Lab Results 04/05/16 Range/Units 04:06 Urine Color Light Yellow Urine Appearance Clear (Clear) Urine pH 7.5 (5.0-8.0) Ur Specific [place] 1.005 (1.001-1.035) Urine Protein Negative (Negative) Urine Glucose (UA) 1+ H (Negative) Urine Ketones Negative (Negative) Urine Blood Negative (Negative) Urine Nitrate Negative (Negative) Urine Bilirubin Negative (Negative) Urine Urobilinogen <2.0 (<2.0) mg/dL Ur Leukocyte Esterase Negative (Negative) Disposition Clinical Impression: Urinary frequency Disposition: TRANSFER TO PSYCH HOSP/UNIT Condition: Good Instructions: Dysuria (ED) Referrals: Yoan Tovar MD [Primary Care Provider] - 1-2 days Time of Disposition: 04:18
[2016-04-05 04:13] LABS: Appearance,Urine Clear (Clear); Bilirubin,Urine Negative (Negative); Glucose,Urine (UA) 1+ (Negative); Ketones,Urine Negative (Negative); Leukocyte Esterase,Urine Negative (Negative); Nitrite,Urine Negative (Negative); PH, Urine 7.5 (5.0-8.0); Protein,Urine Negative (Negative); Specific Gravity,Urine 1.005 (1.001-1.035); UA Billing (MACRO vs. MICRO) CHEM; Urobilinogen,Urine <2.0 mg/dL (<2.0)
== END 2016-04-05 04:23 ==
LOC: EC 03:34
DX: R35.0 Frequency of micturition (principal); I10 Essential (primary) hypertension; Z79.899 Other long term (current) drug therapy; F17.200 Nicotine dependence, unspecified, uncomplicated
CPT/HCPCS: 81003; 99283

== ENCOUNTER → 2016-04-19 | Outpatient (CLI) | payer OTHER ==
[2016-04-19 12:48] LABS: Blood Urea Nitrogen 10 mg/dL (9-20); Non-African American GFR(MDRD) >60 (>60 ml/min/1.73 sqM)
--- NOTE | 2016-04-19 13:37 | CT ---
EXAMINATION TYPE: CT abdomen w con DATE OF EXAM: 04/19/2016 1:24 PM COMPARISON: 03/31/2016 HISTORY: Pancreatitis CT DLP: 1179 mGycm CONTRAST: CT scan of the abdomen and pelvis is performed with Oral Contrast and with IV Contrast, patient injec roberto with 100 ml mL of Omnipaque 300. FINDINGS: LUNG BASES-: No visible nodule. No infiltrate. LIVER/GB: No calcified gallstones. No space occupying hepatic lesion. Biliary tree is of normal ca liber. PANCREAS: Inflammatory changes about the pancreas have improved significantly. Noted are 3 well defin ed cystic masses about the pancreas compatible with pseudocyst formation which measure 8.5 x 4.5 cm, 15.7 cm x 4.9 cm and 4.4 cm x 3.5 cm. No additional cystic mass is seen. SPLEEN: No splenic enlargement. No lesion seen. ADRENALS: No nodule. No thickening. KIDNEYS/BLADDER: No hydronephrosis. No nephrolithiasis. No disctinct renal mass. Urinary bladder g rossly unremarkable. BOWEL: Normal appendix. Normal bowel caliber. No inflammation.LYMPH NODES: No greater than 1cm abd ominal or pelvic lymph nodes are appreciated. AORTA: No significant abnormality. OSSEOUS STRUCTURES: No significant abnormality is seen. OTHER: No significant additional abnormality is seen. IMPRESSION: 1. Inflammatory changes about the pancreas have improved significantly. Noted are 3 well defined cyst ic masses about the pancreas compatible with pseudocyst formation which measure 8.5 x 4.5 cm, 15.7 cm x 4.9 cm and 4.4 cm x 3.5 cm.
== END | disposition home or self-care (01) ==
LOC: RADCTMAIN 11:33
PROVIDERS: ATTEND Internal Medicine
DX: K86.2 Cyst of pancreas (principal); K86.89 Other specified diseases of pancreas
CPT/HCPCS: 82565; 84520; 74160; 36415; Q9967

== ENCOUNTER → 2016-04-22 | Outpatient (CLI) | payer OTHER ==
[2016-04-22 13:02] LABS: ALT 26 U/L (21-72); AST 16 U/L (17-59); Alkaline Phosphatase 50 U/L (38-126); Anion Gap 12 mmol/L; Blood Urea Nitrogen 9 mg/dL (9-20); Calcium 9.6 mg/dL (8.4-10.2); Carbon Dioxide 24 mmol/L (22-30); Chloride 106 mmol/L (98-107); Glucose 140 mg/dL (74-99); Non-African American GFR(MDRD) >60 (>60 ml/min/1.73 sqM); Potassium 3.8 mmol/L (3.5-5.1); Sodium 142 mmol/L (137-145); Total Bilirubin 0.4 mg/dL (0.2-1.3); Total Protein 7.4 g/dL (6.3-8.2)
[2016-04-22 13:12] LABS: Creatinine,Urine Random 141.4 mg/dL
[2016-04-23 09:18] LABS: Mis test requested (Non-blood) TP Urine Random
== END | disposition home or self-care (01) ==
LOC: LABWHC1 11:47
PROVIDERS: ATTEND Nurse Practitioner Family
DX: N17.9 Acute kidney failure, unspecified (principal); R80.9 Proteinuria, unspecified
CPT/HCPCS: 36415; 80053; 82570; 84156

== ENCOUNTER 2016-09-07 14:04 | Emergency (ER) | payer OTHER ==
[2016-09-07 14:14] VITALS: BP 119/66; PULSE 79; RESP 20; TEMP 98.5
--- NOTE | 2016-09-07 14:21 | ED ---
ENT HPI - General Chief complaint: Dental/Oral Stated complaint: Dental Pain Time Seen by Provider: 09/07/16 14:17 Source: patient, RN notes reviewed Mode of arrival: ambulatory Limitations: no limitations - History of Present Illness Initial comments: 45-year-old male presents emergency Department chief complaint right lower dental pain and left upper dental pain. Patient states started last few days. Patient states he has an appointment for tooth extraction next week. Patient has appears or chills no facial swelling at this time. Patient denies any sore throat no other complaints. - Related Data Home Medications Medication Instructions Recorded Confirmed HYDROcodone/APAP 10-325MG [[place] 1 tab PO BID PRN 03/25/16 03/25/16 10-325] amLODIPine [Norvasc] 10 mg PO DAILY 03/25/16 03/25/16 traZODone HCL [Desyrel] 100 mg PO HS PRN 03/25/16 03/25/16 Previous Rx's Medication Instructions Recorded Magnesium Oxide 400 mg PO DAILY #10 tablet 04/04/16 Pantoprazole [Protonix] 40 mg PO DAILY #30 tablet. 04/04/16 Potassium Chloride ER [K-Dur 10] 10 meq PO DAILY #5 tab 04/04/16 hydrALAZINE HCL 25 mg PO BID #60 tablet 04/04/16 Acetaminophen-Codeine 300-30mg 1 tab PO Q4H PRN #20 tablet 09/07/16 [Tylenol #3] Penicillin V Potassium [Pen Vee K] 500 mg PO QID #40 tab 09/07/16 Allergies Allergy/AdvReac Type Severity Reaction Status Date / Time No Known Allergies Allergy Verified 09/07/16 14:14 Review of Systems ROS Statement: Those systems with pertinent positive or pertinent negative responses have been documented in the HPI. ROS Other: All systems not noted in ROS Statement are negative. Past Medical History Past Medical History: Hypertension Additional Past Medical History / Comment(s): chronic back pain L1 - L5 History of Any Multi-Drug Resistant Organisms: None Reported Past Surgical History: Orthopedic Surgery Additional Past Surgical History / Comment(s): knee Past Anesthesia/Blood Transfusion Reactions: No Reported Reaction Past Psychological History: No Psychological Hx Reported Smoking Status: Current every day smoker Past Alcohol Use History: Occasional Past Drug Use History: Marijuana - Past Family History Mother Family Medical History: Cancer Additional Family Medical History / Comment(s): cancer - cervical Father Family Medical History: Renal Disease Additional Family Medical History / Comment(s): Dad had renal failure General Exam Limitations: no limitations General appearance: alert, in no apparent distress Eye exam: Present: normal appearance, PERRL, EOMI. Absent: scleral icterus, conjunctival injection, periorbital swelling ENT exam: Present: mucous membranes moist, TM's normal bilaterally, normal external ear exam. Absent: normal oropharynx (Multiple dental caries noted, dental fracture, no abscess) Neck exam: Present: normal inspection, full ROM. Absent: tenderness, meningismus, lymphadenopathy Respiratory exam: Present: normal lung sounds bilaterally. Absent: respiratory distress, wheezes, rales, rhonchi, stridor Cardiovascular Exam: Present: regular rate, normal rhythm, normal heart sounds. Absent: systolic murmur, diastolic murmur, rubs, gallop, clicks Course Vital Signs 09/07/16 14:13 Temperature 98.5 F Pulse Rate 79 Respiratory 20 Rate Blood Pressure 119/66 O2 Sat by Pulse 99 Oximetry Medical Decision Making - Medical Decision Making 45-year-old male presented for dental pain. Patient was placed on antibiotics and pain medication follow-up with dentist next week return parameters discussed. Disposition Clinical Impression: Fracture of tooth, Toothache Disposition: HOME SELF-CARE Condition: Stable Instructions: Toothache (ED) Additional Instructions: Please return to the Emergency Department if symptoms worsen or any other concerns. Prescriptions: Acetaminophen-Codeine 300-30mg [Tylenol #3] 1 tab PO Q4H PRN #20 tablet PRN Reason: pain Penicillin V Potassium [Pen Vee K] 500 mg PO QID #40 tab Referrals: Yoan Tovar MD [Primary Care Provider] - 1-2 days Time of Disposition: 14:21
== END 2016-09-07 14:27 | disposition home or self-care (01) ==
LOC: EC 14:04
DX: S02.5XXA Fracture of tooth (traumatic), initial encounter for closed fracture (principal); I10 Essential (primary) hypertension; F17.200 Nicotine dependence, unspecified, uncomplicated; Z79.899 Other long term (current) drug therapy; X58.XXXA Exposure to other specified factors, initial encounter
CPT/HCPCS: 99282

== ENCOUNTER → 2016-10-06 | Outpatient (CLI) | payer OTHER ==
--- NOTE | 2016-10-06 15:59 | CT ---
EXAMINATION TYPE: CT abdomen w con DATE OF EXAM: 10/06/2016 COMPARISON: Prior CT abdomen 04/19/2016 HISTORY: Pancreatic cyst CT DLP: 584.4 mGycm Automated exposure control for dose reduction was used. TECHNIQUE: Helical acquisition of images was performed from the lung bases through the top of iliac crest to include entire abdomen. CONTRAST: Performed with Oral Contrast and with IV Contrast, patient injected with 100 mL of Omnipaque 300. FINDINGS: There is a retroaortic left renal vein present. LUNG BASES: No significant abnormality is appreciated. LIVER/GB: Liver shows low attenuation possibly due to fatty infiltration. Gallbladder is normal.. PANCREAS: Cystic focus seen at the level of the pancreatic tail extending to the level of the spleen and left adrenal gland is noted and measures 4.4 x 2.3 x 2.2 cm and is diminished in size compared to previous exam when it measured greater than 7 x 5 cm. SPLEEN: No significant abnormality is seen. ADRENALS: No significant abnormality is seen. KIDNEYS: No significant abnormality is seen. BOWEL: No significant abnormality is seen. Distal stomach shows wall thickening possibly due to silvino ritis or possibly duodenitis. Cystic foci at this level have resolved. LYMPH NODES: No significant abnormality is appreciated. OSSEOUS STRUCTURES: No significant abnormality is seen. Spinal curvature is again noted, there are d egenerative disc changes at the lower lumbar spine. FREE AIR: No Free Air visible ASCITES: None visible. RETROPERITONEAL ADENOPATHY: No Retroperitoneal Adenopathy visible. OTHER: IMPRESSION: THERE IS IMPROVEMENT COMPARED TO PRIOR EXAM AND IS CYSTIC FOCI PREVIOUSLY DESCRIBED. ADDITIONAL FI NDINGS ABOVE, CORRELATE TO EXCLUDE GASTRITIS.
== END | disposition home or self-care (01) ==
LOC: RADCTMAIN 14:49
PROVIDERS: ATTEND Internal Medicine
DX: K63.89 Other specified diseases of intestine (principal)
CPT/HCPCS: 74160; Q9967

== ENCOUNTER 2016-12-10 10:44 | Emergency (ER) | payer OTHER ==
[2016-12-10 10:51] VITALS: BP 132/93; PULSE 86; RESP 18; TEMP 97.7
[2016-12-10] MEDS ORDERED: GELATIN SPONGE,ABSORB (SMALL) 1 EACH SPONGE TOPICAL STA (11:04)
--- NOTE | 2016-12-10 11:24 | ED ---
General Adult HPI - General Chief complaint: Wound/Laceration Stated complaint: LEFT FINGER LAC Time Seen by Provider: 12/10/16 10:54 Source: patient, RN notes reviewed Mode of arrival: ambulatory Limitations: no limitations - History of Present Illness Initial comments: Patient 46-year-old male who presents emergency room today with a chief complaint of a laceration to the left index finger. He does with that this occurred 2 days ago when he was cutting up some chicken with a sharp knife. He states the bleeding has been coming and going symptoms time stopping it. Patient does admit that his tetanus is up-to-date. He denies any complaints or associated symptoms. Patient denies any recent fever, chills, shortness of breath, chest pain, back pain, abdominal pain, nausea or vomiting, numbness or tingling, dysuria or hematuria, constipation or diarrhea, headaches or visual changes, or any other complaints. - Related Data Home Medications Medication Instructions Recorded Confirmed amLODIPine [Norvasc] 10 mg PO DAILY 03/25/16 09/07/16 traZODone HCL [Desyrel] 100 mg PO HS PRN 03/25/16 09/07/16 Previous Rx's Medication Instructions Recorded hydrALAZINE HCL 25 mg PO BID #60 tablet 04/04/16 Acetaminophen-Codeine 300-30mg 1 tab PO Q4H PRN #20 tablet 09/07/16 [Tylenol #3] Penicillin V Potassium [Pen Vee K] 500 mg PO QID #40 tab 09/07/16 Cephalexin [Keflex] 500 mg PO Q12HR 7 Days 12/10/16 Ibuprofen [Motrin] 600 mg PO Q6HR PRN #20 day 12/10/16 Allergies Allergy/AdvReac Type Severity Reaction Status Date / Time No Known Allergies Allergy Verified 12/10/16 10:51 Review of Systems ROS Statement: Those systems with pertinent positive or pertinent negative responses have been documented in the HPI. ROS Other: All systems not noted in ROS Statement are negative. Past Medical History Past Medical History: Hypertension Additional Past Medical History / Comment(s): chronic back pain L1 - L5 History of Any Multi-Drug Resistant Organisms: None Reported Past Surgical History: Orthopedic Surgery Additional Past Surgical History / Comment(s): knee Past Anesthesia/Blood Transfusion Reactions: No Reported Reaction Past Psychological History: No Psychological Hx Reported Smoking Status: Current every day smoker Past Alcohol Use History: Occasional Past Drug Use History: Marijuana - Past Family History Mother Family Medical History: Cancer Additional Family Medical History / Comment(s): cancer - cervical Father Family Medical History: Renal Disease Additional Family Medical History / Comment(s): Dad had renal failure General Exam - General Exam Comments Initial Comments: General: The patient is awake and alert, in no distress, and does not appear acutely ill. Neck: The neck is supple, there is no tenderness or JVD. Cardiovascular: There is a regular rate and rhythm. No murmur, rub or gallop is appreciated. Respiratory: Lungs are clear to auscultation, respirations are non-labored, breath sounds are equal. No wheezes, stridor, rales, or rhonchi. Musculoskeletal: Full range motion. Sensation intact. Pulses equal bilaterally 2+. Strength 5/5. Neurological: A&O x 3. CN II-XII intact, There are no obvious motor or sensory deficits. Coordination appears grossly intact. Speech is normal. Skin: Superficial laceration of the left index finger going through part of the distal nail. Psychiatric: Normal mood and affect. Limitations: no limitations Course Vital Signs 12/10/16 10:48 Temperature 97.7 F Pulse Rate 86 Respiratory 18 Rate Blood Pressure 132/93 O2 Sat by Pulse 98 Oximetry Medical Decision Making - Medical Decision Making Assessment was irrigated cleaned here in the emergency room by nursing staff with a small piece of [place] placed over top and sterile dressing. Patient is advised to follow-up with family doctor. Will be started on antibiotics cover for infection. Advised return for any other concerns. Disposition Clinical Impression: Laceration Disposition: HOME SELF-CARE Condition: Good Instructions: Laceration (ED) Additional Instructions: Please allow the Gelf[place]am fall off on its own. Please replace it if there is any rebleeding as discussed. Please follow-up the family doctor over the next 2 days to have wound rechecked. Please use antibiotic as prescribed. Please return for any other concerns. Prescriptions: Cephalexin [Keflex] 500 mg PO Q12HR 7 Days Ibuprofen [Motrin] 600 mg PO Q6HR PRN #20 day PRN Reason: Pain Referrals: Yoan Tovar MD [Primary Care Provider] - 1-2 days Time of Disposition: 11:23
== END 2016-12-10 11:28 | disposition home or self-care (01) ==
LOC: EC 10:44
DX: S61.211A Laceration without foreign body of left index finger without damage to nail, initial encounter (principal); I10 Essential (primary) hypertension; F17.200 Nicotine dependence, unspecified, uncomplicated; Z79.899 Other long term (current) drug therapy; W26.0XXA Contact with knife, initial encounter
CPT/HCPCS: 99282

== ENCOUNTER 2018-05-08 12:26 | Emergency (ER) | payer OTHER ==
[2018-05-08 13:00] VITALS: BP 138/90; RESP 18; TEMP 98
[2018-05-08] MEDS ORDERED: IPRATROPIUM-ALBUTEROL 3 ML NEB INHALATION STA (13:56)
[2018-05-08] MEDS ORDERED: methylPREDNISolone SOD SUCCI 125 MG/2 ML VIAL IV STA (13:56)
[2018-05-08 14:12] VITALS: PULSE 84
[2018-05-08] MEDS ORDERED: methylPREDNISolone SOD SUCCI 125 MG/2 ML VIAL IM ONE (14:26)
--- NOTE | 2018-05-08 14:30 | XR ---
EXAMINATION TYPE: XR chest 2V DATE OF EXAM: 05/08/2018 COMPARISON: NONE HISTORY: Chest pain TECHNIQUE: Frontal and lateral views of the chest are obtained. FINDINGS: There is no focal air space opacity. No evidence for pneumothorax. No pleural effusion. The cardiac silhouette size is within normal limits. The osseous structures are grossly intact. IMPRESSION: 1. No acute cardiopulmonary process.
--- NOTE | 2018-05-08 14:54 | ED ---
URI HPI - General Chief Complaint: Upper Respiratory Infection Stated Complaint: Cough, Poss Flu Time Seen by Provider: 05/08/18 13:31 Source: patient, RN notes reviewed, old records reviewed Mode of arrival: ambulatory Limitations: no limitations - History of Present Illness Initial Comments: Patient is a 47 year old male with cough, congestion, shortness and of breath. He reports symptoms for a few days. He has taken alkaseltzer cold and flu with on reliefe. He is a smoker. Denies abdominal pain. He reports heaviness to his chest with taking a deep breath. MD Complaint: fever, cough - Related Data Home Medications Medication Instructions Recorded Confirmed amLODIPine [Norvasc] 10 mg PO DAILY 03/25/16 01/22/17 Pantoprazole Sodium [Protonix] 40 mg PO DAILY 01/19/17 01/22/17 Previous Rx's Medication Instructions Recorded hydrALAZINE HCL 25 mg PO BID #60 tablet 04/04/16 Ibuprofen [Motrin] 600 mg PO Q6HR PRN #20 tab 01/19/17 Penicillin V Potassium [Pen Vee K] 500 mg PO QID 10 Days tablet 01/19/17 Acetaminophen-Codeine 300-30mg 1 tab PO Q4H PRN #15 tablet 01/22/17 [Tylenol #3] Albuterol Inhaler [Ventolin Hfa 1 - 2 puff INHALATION RT-Q6H PRN 05/08/18 Inhaler] #1 inhaler Azithromycin [Zithromax Z-pack] 250 mg PO DIRECTED #6 tab 05/08/18 methylPREDNISolone Dose Pack 4 mg PO DIRECTED #21 package 05/08/18 [Medrol Dose Pack] Allergies Allergy/AdvReac Type Severity Reaction Status Date / Time No Known Allergies Allergy Verified 05/08/18 12:57 Review of Systems ROS Statement: Those systems with pertinent positive or pertinent negative responses have been documented in the HPI. ROS Other: All systems not noted in ROS Statement are negative. Past Medical History Past Medical History: Hypertension Additional Past Medical History / Comment(s): chronic back pain L1 - L5 History of Any Multi-Drug Resistant Organisms: None Reported Past Surgical History: Orthopedic Surgery Additional Past Surgical History / Comment(s): knee Past Anesthesia/Blood Transfusion Reactions: No Reported Reaction Past Psychological History: No Psychological Hx Reported Smoking Status: Current every day smoker Past Alcohol Use History: Occasional Past Drug Use History: Marijuana - Past Family History Mother Family Medical History: Cancer Additional Family Medical History / Comment(s): cancer - cervical Father Family Medical History: Renal Disease Additional Family Medical History / Comment(s): Dad had renal failure General Exam - General Exam Comments Initial Comments: 47 year old male presents today with cough. No distress. Limitations: no limitations General appearance: alert, in no apparent distress Head exam: Present: atraumatic, normocephalic, normal inspection Eye exam: Present: normal appearance, PERRL, EOMI. Absent: scleral icterus, conjunctival injection, periorbital swelling ENT exam: Present: normal exam, mucous membranes moist Neck exam: Present: normal inspection. Absent: tenderness, meningismus, lymphadenopathy Respiratory exam: Present: normal lung sounds bilaterally, wheezes. Absent: respiratory distress, rales, rhonchi, stridor Cardiovascular Exam: Present: regular rate, normal rhythm, normal heart sounds. Absent: systolic murmur, diastolic murmur, rubs, gallop, clicks GI/Abdominal exam: Present: soft, normal bowel sounds. Absent: distended, tenderness, guarding, rebound, rigid Extremities exam: Present: normal inspection, full ROM, normal capillary refill. Absent: tenderness, pedal edema, joint swelling, calf tenderness Back exam: Present: normal inspection Neurological exam: Present: alert, oriented X3, CN II-XII intact Psychiatric exam: Present: normal affect, normal mood Skin exam: Present: warm, dry, intact, normal color. Absent: rash Course Vital Signs 05/08/18 05/08/18 05/08/18 12:57 14:09 14:18 Temperature 98 F Pulse Rate 65 84 84 Respiratory 18 Rate Blood Pressure 138/90 O2 Sat by Pulse 98 Oximetry Medical Decision Making - Medical Decision Making This is a 47 year old male with cough, congestion and shortness of breath. He stated that he had a heaviness ot chest when taking a deep breath. Offered blood work and EKG and patient refused. Given albuterol treatment and reports some relief. PAtient CXR is normal influenza is normal. Offered IM steroid to help with wheezing and patient refused. PAteint will be DC with steriods and zpak for bronchitis. Patient was quite hostile when I explained why I would like patient to have these tests. States, "I just have bronchitis and I waited 3 hours". Discussed will DC patient and follow up with PCP - Lab Data Lab Results 05/08/18 Range/Units 13:43 Influenza Type A RNA Not Detected (Not Detectd) Influenza Type B (PCR) Not Detected (Not Detectd) - Radiology Data Radiology results: report reviewed Negative CXR. Disposition Clinical Impression: Bronchitis Disposition: HOME SELF-CARE Condition: Good Instructions (If sedation given, give patient instructions): Upper Respiratory Infection (ED) Additional Instructions: Patient advised some close follow-up with primary care physicians. Patient's take medicines as prescribed. Use inhaler. Continue to use [id number] medication such as Motrin Tylenol for body aches and headaches. Prescriptions: Albuterol Inhaler [Ventolin Hfa Inhaler] 1 - 2 puff INHALATION RT-Q6H PRN #1 inhaler PRN Reason: Shortness Of Breath Azithromycin [Zithromax Z-pack] 250 mg PO DIRECTED #6 tab methylPREDNISolone Dose Pack [Medrol Dose Pack] 4 mg PO DIRECTED #21 package Is patient prescribed a controlled substance at d/c from ED?: No Referrals: None,Stated [Primary Care Provider] - 1-2 days Lynette Emmanuel MD [STAFF PHYSICIAN] - 1-2 days Time of Disposition: 14:55
[2018-05-08] MEDS ORDERED: ACETAMINOPHEN TAB 500 MG TAB PO STA (14:56)
[2018-05-08] MEDS ORDERED: IBUPROFEN 600 MG STARTER PACK 4 TAB BTL PO STA (14:56)
== END 2018-05-08 15:08 | disposition home or self-care (01) ==
LOC: EC 12:26
DX: J40 Bronchitis, not specified as acute or chronic (principal); I10 Essential (primary) hypertension; F17.200 Nicotine dependence, unspecified, uncomplicated; Z79.899 Other long term (current) drug therapy; Z53.20 Procedure and treatment not carried out because of patient's decision for unspecified reasons; Z53.8 Procedure and treatment not carried out for other reasons
CPT/HCPCS: 71046; 87502; 94640; 99285

== ENCOUNTER 2020-10-26 14:18 | Emergency (ER) | payer OTHER ==
[2020-10-26 14:21] VITALS: BP 152/99; PULSE 107; RESP 16; TEMP 97.9
[2020-10-26] MEDS ORDERED: LIDOCAINE 1%-EPI 1:100,000 20 ML VIAL SQ STA (14:23)
--- NOTE | 2020-10-26 14:42 | ED ---
General Adult HPI - General Chief complaint: Extremity Injury, Lower Stated complaint: Fish hook in R leg Time Seen by Provider: 10/26/20 14:23 Source: patient Mode of arrival: ambulatory Limitations: no limitations - History of Present Illness Initial comments: Dictation was produced using [employer] dictation software. please excuse any grammatical, word or spelling errors. Chief Complaint: 49-year-old male presents emergency Department with fishhook in right leg History of Present Illness: Patient is a 49-year-old male presents to emergency department after fishhook got embedded into his right lower extremity. He was moving his motorcycle when his leg was caught by fishhook. The ROS documented in this emergency department record has been reviewed and confirmed by me. Those systems with pertinent positive or negative responses have been documented in the HPI. All other systems are other negative and/or noncontributory. PHYSICAL EXAM: General Impression: Alert and oriented x3, not in acute distress HEENT: Normocephalic atraumatic, extra-ocular movements intact, pupils equal and reactive to light bilaterally, mucous membranes moist. Cardiovascular: Heart regular rate and rhythm Chest: Able to complete full sentences, no retractions, no tachypnea Musculoskeletal: Pulses present and equal in all extremities, no peripheral edema Motor: no focal deficits noted Neurological: CN II-XII grossly intact, no focal motor or sensory deficits noted Skin: [place] embedded into his right medial tibial area. It's a double style fishhook Psych: Normal affect and mood ED course: 59 yo male presents with fishhook embedded in his right leg. Vital signs upon arrival are within acceptable limits. A was anesthetized using lidocaine with epinephrine. Attempt was made however patient was not able to tolerate the procedure. One attempt which took a total of 15 seconds was made and patient states that he did not want to go any further. He states he did not have any pain. Started to feel a little vasovagal. Patient states that he wants to remove the fishhook at home by himself. Patient told that the fishhook should be removed and if not that he get an infection. Social offered tetanus that he also refused. Patient signed AMA papers. Risks, Benefits, and Treatment alternatives were discussed in detail with the patient. The patient is alert and oriented X 3 and has the capacity to make an informed decision. The risks of increased morbidity including the possibly of were explained to and understood by the patient who is choosing to leave against medical advice. The patient is encouraged to return any time should they want further treatment and diagnostic investigation. - Related Data Home Medications Medication Instructions Recorded Confirmed Pantoprazole Sodium [Protonix] 40 mg PO DAILY 01/19/17 08/15/18 Amoxicillin 500 mg PO QID 08/15/18 08/15/18 Ibuprofen 600 mg PO QID 08/15/18 08/15/18 Previous Rx's Medication Instructions Recorded hydrALAZINE HCL 25 mg PO BID #60 tablet 04/04/16 Allergies Allergy/AdvReac Type Severity Reaction Status Date / Time No Known Allergies Allergy Verified 10/26/20 14:21 Review of Systems ROS Statement: Those systems with pertinent positive or pertinent negative responses have been documented in the HPI. ROS Other: All systems not noted in ROS Statement are negative. Past Medical History Past Medical History: Hypertension, Osteoarthritis (OA) Additional Past Medical History / Comment(s): ulcers, acute pancreatitis, cyst on pancreas, History of Any Multi-Drug Resistant Organisms: None Reported Past Surgical History: Orthopedic Surgery Additional Past Surgical History / Comment(s): oral surgery July 2018, arthroscopy rt knee, Past Anesthesia/Blood Transfusion Reactions: No Reported Reaction Past Psychological History: No Psychological Hx Reported Smoking Status: Current every day smoker Past Alcohol Use History: Occasional Past Drug Use History: Marijuana - Past Family History Mother Family Medical History: No Reported History Additional Family Medical History / Comment(s): . Father Family Medical History: Renal Disease Additional Family Medical History / Comment(s): Dad had renal failure General Exam Limitations: no limitations Course Vital Signs 10/26/20 14:19 Temperature 97.9 F Pulse Rate 107 H Respiratory 16 Rate Blood Pressure 152/99 O2 Sat by Pulse 96 Oximetry Procedures - Forgein Body Removal Soft Tissue Consent Obtained: verbal consent Site: lower extremity Anesthetic Used: lidocaine 1%, with epi Foreign Body Suspected: Fish Hook Foreign Body Removed: no Complications: other (not removed, patient started to feel light headed and did not want to proceed. wanted to attempt at home. signed out AMA.) Disposition Clinical Impression: Fish hook injury of right lower leg Disposition: Left Against Medical Advice Condition: Fair Instructions (If sedation given, give patient instructions): Soft Tissue Foreign Body (ED) Is patient prescribed a controlled substance at d/c from ED?: No Referrals: None,Stated [Primary Care Provider] - 1-2 days
== END 2020-10-26 14:57 | disposition left against medical advice (07) ==
LOC: EC 14:18
DX: S80.851A Superficial foreign body, right lower leg, initial encounter (principal); I10 Essential (primary) hypertension; M19.90 Unspecified osteoarthritis, unspecified site; F17.200 Nicotine dependence, unspecified, uncomplicated; F12.90 Cannabis use, unspecified, uncomplicated; Z79.1 Long term (current) use of non-steroidal anti-inflammatories (NSAID); Z79.899 Other long term (current) drug therapy; W45.8XXA Other foreign body or object entering through skin, initial encounter
CPT/HCPCS: 99283

== ENCOUNTER 2020-11-02 05:31 | Emergency (ER) | payer OTHER ==
[2020-11-02 05:38] VITALS: BP 162/96; PULSE 87; RESP 19; TEMP 98.4
[2020-11-02] MEDS ORDERED: OFLOXACIN 0.3% OPHTH DROPS 5 ML BOTTLE LEFT EAR STA (06:13)
[2020-11-02] MEDS ORDERED: KETOROLAC 15 MG/ML 1 ML VIAL IM STA (06:13)
[2020-11-02] MEDS ORDERED: AMOXIC-POT CLAV 875MG STARTER PACK 2 TAB BTL PO STA (06:13)
--- NOTE | 2020-11-02 06:15 | ED ---
General Adult HPI - General Chief complaint: ENT Stated complaint: Ear Pain Time Seen by Provider: 11/02/20 06:06 Source: patient Mode of arrival: ambulatory - History of Present Illness Initial comments: 49-year-old male presents to the emergency room for chief complaint of left ear pain. Patient states this started yesterday. Patient states the pain is a sharp shooting pain. Patient denies fevers. Denies any ear drainage. Patient denies any history of diabetes. Patient denies pain behind the ear. Patient has not been on any antibiotics. Patient has not taken any Motrin or Tylenol for pain at home.Patient has no other complaints at this time including shortness of breath, chest pain, abdominal pain, nausea or vomiting, headache, or visual changes. - Related Data Home Medications Medication Instructions Recorded Confirmed Pantoprazole Sodium [Protonix] 40 mg PO DAILY 01/19/17 08/15/18 Amoxicillin 500 mg PO QID 08/15/18 08/15/18 Ibuprofen 600 mg PO QID 08/15/18 08/15/18 Previous Rx's Medication Instructions Recorded hydrALAZINE HCL 25 mg PO BID #60 tablet 04/04/16 Amoxicillin/Potassium Clav 1 tab PO Q12HR #20 tab 11/02/20 [Augmentin 875-125 Tablet] Ofloxacin 0.3% Ophth Soln [Ocuflox 10 drops LEFT EAR DAILY 7 Days #10 11/02/20 Ophth Soln] ml Allergies Allergy/AdvReac Type Severity Reaction Status Date / Time No Known Allergies Allergy Verified 11/02/20 05:39 Review of Systems ROS Statement: Those systems with pertinent positive or pertinent negative responses have been documented in the HPI. ROS Other: All systems not noted in ROS Statement are negative. Past Medical History Past Medical History: Hypertension, Osteoarthritis (OA) Additional Past Medical History / Comment(s): ulcers, acute pancreatitis, cyst on pancreas, History of Any Multi-Drug Resistant Organisms: None Reported Past Surgical History: Orthopedic Surgery Additional Past Surgical History / Comment(s): oral surgery July 2018, arthroscopy rt knee, Past Anesthesia/Blood Transfusion Reactions: No Reported Reaction Past Psychological History: No Psychological Hx Reported Smoking Status: Current every day smoker Past Alcohol Use History: Occasional Past Drug Use History: Marijuana - Past Family History Mother Family Medical History: No Reported History Additional Family Medical History / Comment(s): . Father Family Medical History: Renal Disease Additional Family Medical History / Comment(s): Dad had renal failure General Exam General appearance: alert Head exam: Present: atraumatic, normocephalic, normal inspection Eye exam: Present: normal appearance, PERRL, EOMI. Absent: scleral icterus, conjunctival injection, periorbital swelling ENT exam: Present: normal exam, mucous membranes moist. Absent: TM's normal bilaterally (unable to visualize L TM. R TM is normal), normal external ear exam (mild edema and granulation tissue of L external auditory canal) Neck exam: Present: normal inspection, full ROM. Absent: tenderness, meningismus, lymphadenopathy Respiratory exam: Present: normal lung sounds bilaterally. Absent: respiratory distress, wheezes, rales, rhonchi, stridor Cardiovascular Exam: Present: regular rate, normal rhythm, normal heart sounds. Absent: systolic murmur, diastolic murmur, rubs, gallop, clicks Course Vital Signs 11/02/20 05:36 Temperature 98.4 F Pulse Rate 87 Respiratory 19 Rate Blood Pressure 162/96 O2 Sat by Pulse 100 Oximetry Medical Decision Making - Medical Decision Making Patient with otalgia starting yesterday. Does have some mild edema with purulent drainage seen in the external auditory canal. Consistent with otitis externa. Patient does not have a history of diabetes or immunocompromise. Patient will be treated with ofloxacin drops. Patient will be covered with Augmentin given I cannot visualize the tympanic membrane to rule out an otitis media. He will need to follow up with ENT. He will return here for any worsening symptoms. Disposition Clinical Impression: Ear pain, Otitis externa Disposition: HOME SELF-CARE Condition: Good Instructions (If sedation given, give patient instructions): Otitis Externa (ED) Additional Instructions: Keep ear dry - no swimming. It is important that you use the antibiotic drops. Please take oral antibiotics as well. Take Motrin and Tylenol for pain. He can alternate these every 3 hours. Follow-up with your primary care doctor or ENT. Return to the emergency room for any worsening symptoms. Prescriptions: Amoxicillin/Potassium Clav [Augmentin 875-125 Tablet] 1 tab PO Q12HR #20 tab Ofloxacin 0.3% Ophth Soln [Ocuflox Ophth Soln] 10 drops LEFT EAR DAILY 7 Days #10 ml Is patient prescribed a controlled substance at d/c from ED?: No Referrals: Keith Garza MD [STAFF PHYSICIAN] - 1-2 days Time of Disposition: 06:29
== END 2020-11-02 06:45 | disposition home or self-care (01) ==
LOC: EC 05:31
DX: H60.92 Unspecified otitis externa, left ear (principal); I10 Essential (primary) hypertension; M19.90 Unspecified osteoarthritis, unspecified site; F17.200 Nicotine dependence, unspecified, uncomplicated; F12.90 Cannabis use, unspecified, uncomplicated; Z79.1 Long term (current) use of non-steroidal anti-inflammatories (NSAID); Z79.899 Other long term (current) drug therapy
CPT/HCPCS: 96372; 99282; J1885